=== PATIENT | female | born 1955 | race Caucasian/White ===

== ENCOUNTER 2016-11-10 17:55 | Inpatient (IN) | payer MEDICARE ==
[~2016-11-10 17:55] MED LIST: ROCURONIUM BROMIDE INJ 50 MG/5 ML VIAL IV ONE
[2016-11-10] MEDS ORDERED: DIPHENHYDRAMINE HCL 50 MG/ML VIAL IV ONE (18:43)
[2016-11-10] MEDS ORDERED: NORMAL SALINE 1000 ML 1,000 ML IV ONE ×3 (18:43→21:50)
[2016-11-10 18:47] LABS: ABSOLUTE EOSINOPHILS # (AUTO) 0.1 10^3/uL (0.0-0.6); ABSOLUTE LYMPHOCYTES (AUTO) 0.7 10^3/uL (0.5-4.7); ABSOLUTE MONOCYTES (AUTO) 0.6 10^3/uL (0.1-1.4); ABSOLUTE NEUT (AUTO) 8.9 10^3/uL (1.7-8.2); BASOPHILS % (AUTO) 0.1 % (0-2); EOSINOPHILS % (AUTO) 0.9 % (0-6); HEMOGLOBIN 10.7 g/dL (12.0-15.5); HGB HCT DIFFERENCE 0.1; LYMPHOCYTES % (AUTO) 6.5 % (13-45); MEAN CORPUSCULAR HEMOGLOBIN 30.5 pg (27.0-33.4); MEAN CORPUSCULAR HGB CONC 33.4 g/dL (32.0-36.0); MEAN CORPUSCULAR VOLUME 92 fl (80-97); MONOCYTES % (AUTO) 6.2 % (3-13); RED CELL DISTRIBUTION WIDTH 16.8 % (11.5-14.0); SEGMENTED NEUTROPHILS % (AUTO) 86.3 % (42-78); WHITE BLOOD COUNT 10.3 10^3/uL (4.0-10.5)
--- NOTE | 2016-11-10 18:50 | ER Document Report ---
ED General - General Chief Complaint: Altered Mental Status Stated Complaint: POSSIBLE OVERDOSE Time Seen by Provider: 11/10/16 18:26 Cannot obtain history due to: Altered mental status Notes: Patient is a 61-year-old female with past medical history of hypertension, chronic back pain, depression, chronic chest pain, who does present with familial concern about 4 episodes of unwitnessed syncope versus falling asleep inappropriately. Patient over the past 30 hours has been found on 4 separate times lying on the ground apparently sleeping but does immediately wake to voice. The patient herself does not recall any of these events, is not a useful historian frequently giving answers that her sister at the bedside states are not true. They are visiting out of town from [place]. Her sister at the bedside states that when a started drive up from [place] yesterday approximately several hours into the drive the patient became somewhat altered, acting unusual and having episodes where she would fall asleep frequently. Family notes that she has had similar episodes in the past in the setting of medication use but typically comes out of it in less than 3-4 hours. They have never seen the patient have symptoms for this long which is what prompted them to come to the emergency department today. The patient herself states she is taking none of her medications today but she is unable to tell me why she did this. She denies any acute complaints other than chronic low back pain which she states is not different than normal. TRAVEL OUTSIDE OF THE [place] IN LAST 30 DAYS: No - Related Data Allergies/Adverse Reactions: No Known Allergies Allergy (Unverified 11/10/16 23:05) Past Medical History - General Information source: Patient, Relative Cannot obtain history due to: Altered mental status - Social History Smoking Status: Never Smoker Frequency of alcohol use: None Drug Abuse: None Lives with: Family Family History: Reviewed & Not Pertinent Renal/ Medical History: Denies: Hx Peritoneal Dialysis Review of Systems - Review of Systems Notes: Constitutional: Negative for fever. HENT: Negative for sore throat. Eyes: Negative for visual changes. Cardiovascular: Negative for chest pain. Respiratory: Negative for shortness of breath. Gastrointestinal: Negative for abdominal pain, vomiting or diarrhea. Genitourinary: Negative for dysuria. Musculoskeletal: Positive for chronic back pain Skin: Negative for rash. Neurological: Negative for headaches, weakness or numbness. 10 point ROS negative except as marked above and in HPI. -: Yes ROS unobtainable due to patient's medical condition Physical Exam - Vital signs Vitals: Temp Pulse Resp BP Pulse Ox 98.1 F 94 18 125/99 H 93 11/10/16 18:06 11/10/16 18:06 11/10/16 18:06 11/10/16 18:06 11/10/16 18:06 Notes: PHYSICAL EXAMINATION: GENERAL: Appears anxious, unable to stop moving around in the bed, grinding her teeth HEAD: Atraumatic, normocephalic. EYES: Pupils equal round and reactive to light, extraocular movements intact, sclera anicteric, conjunctiva are normal. ENT: nares patent, oropharynx clear without exudates. Moderately dry mucous membranes. NECK: Normal range of motion, supple without lymphadenopathy LUNGS: Breath sounds clear to auscultation bilaterally and equal. No wheezes rales or rhonchi. HEART: Regular rate and rhythm without murmurs ABDOMEN: Soft, nontender, normoactive bowel sounds. No guarding, no rebound. No masses appreciated. EXTREMITIES: Normal range of motion, no pitting or edema. No cyanosis. NEUROLOGICAL: No focal neurological deficits. Moves all extremities spontaneously and on command. PSYCH: Initially fails year orientation but is eventually able to tell me it is 2017 after 30 seconds. She initially states where in [place] and on a second attempt correctly answers that we are in [place]. She is oriented to month. SKIN: Warm, Dry, normal turgor, no rashes or lesions noted. Course - Re-evaluation Re-evalutation: 11/10/16 18:45 Patient presents as an undifferentiated altered mental status with associated akathisias. Patient is unable to sit still, crawling around in the bed, grinding her teeth. Initial vitals show mild hypotension blood pressure at time of my assessment was 97 on 63. No tachycardia, tachypnea or hypoxemia. Patient does not answer orientation questions appropriately initially but is able to get them on a second try. It took her over 30 seconds to tell me what year we are in. She initially thought we are in [place] not [place]. Her vitals and symptoms are not consistent with acute opiate withdrawal which I would expect both hypertension and tachycardia although patient is on a long- acting narcotic and states she is not taking it today. Patient is on multiple psychotropic medications including gabapentin, duloxetine, and bupropion but none of these should produce akathisias. Patient is not on antipsychotics. Both alcohol and benzodiazepine withdrawal should present differently again with more tremulousness, tachycardia, hypertension, nausea and vomiting none of which patient has. Patient has no focal neurologic deficit on examination and her clinical presentation is not consistent with an acute stroke or intracranial hemorrhage. Patient denies any acute infectious symptoms. At this point will order a broad workup as my differential is wide at this time including acute toxicological mechanism, withdrawal from a stimulant such as amphetamines or cocaine, less likely occult infection. 11/10/16 19:11 Patient's pill count does demonstrate that she is missing 10 tablets of Adderall. This points to persistent amphetamine abuse in the setting of having gone on a family trip she may be acutely withdrawing from this which could reduce her agitation, periods of somnolence, and restlessness. Will continue to monitor closely 11/10/16 20:28 Labs do demonstrate that patient is in acute renal failure in the setting of acute rhabdomyolysis most suspicious for amphetamine abuse given her missing Adderall tablets and redness around her nose and a withdrawal profile consistent with this. Additional fluids have been ordered at this time. Patient will require admission. 11/10/162039 I was called to the patient's bedside as she became acutely altered, hypotensive , no longer protecting her airway. Immediately came to the bedside, 2 L of additional IV fluids were started, patient was placed into reverse Trendelenburg. A total of 1.2 mg of naloxone was administered. These interventions did significantly improve patient's blood pressure back to a normal blood pressure of 136 systolic. Patient's mental status did also return closer to her initial presenting mental status where she would appropriately answer that she is in the hospital that is 2016 but still was unable to carry an appropriate conversation. Patient continues to have involuntary twitching in all extremities. She is having mild signs of narcotic withdrawal after administration of 1.2 mg of naloxone which was given over 20 minutes and doses of 0.2-0.4 mg per dose. A bedside FAST exam was completed without any evidence of intra-abdominal fluid. IVC measurement does show that patient has greater than 50% respiratory variation consistent with dehydration. No evidence of pericardial effusion or regional wall motion abnormality on echocardiogram. Lung ultrasound shows appropriate pleural slide bilaterally. Based on patient' s overall presentation as well as response to naloxone I suspect a multifactorial presentation of narcotic overdose, amphetamine withdrawal, as well as underlying dehydration secondary to rhabdomyolysis. 11/10/16 21:34 Patient's blood pressure and hypoxemia continued to be improved but her mental status continued to deteriorate consistent with probable CO2 retention in the setting of hypoventilation and a depressed mental status. Patient has been intubated at this time for airway protection. ABG has been obtained prior to intubation. 11/10/16 21:51 Arterial blood gas shows findings consistent with an acute metabolic acidosis likely secondary to rhabdomyolysis with uremia. 2 amps of bicarbonate will be administered and a bicarb infusion will be started. 11/10/16 22:32 I have discussed the case with Dr.John Paredes who is agreeable to admission. ET tube will be advanced 2cm. Patient remains hemodynamic stable on ventilator - Vital Signs Vital signs: Temp Pulse Resp BP Pulse Ox 96.5 F L 78 17 143/73 H 100 11/10/16 23:51 11/11/16 00:10 11/11/16 02:27 11/11/16 02:27 11/11/16 02:27 - Laboratory Result Diagrams: 11/10/16 18:25 11/10/16 23:20 Laboratory results interpreted by me: 11/10/16 11/10/16 11/10/16 18:25 18:25 18:33 RBC 3.50 L Hgb 10.7 L Hct 32.0 L RDW 16.8 H Seg Neutrophils % 86.3 H Lymphocytes % 6.5 L Absolute Neutrophils 8.9 H Carbonic Acid ABG pH ABG pCO2 ABG pO2 ABG HCO3 ABG Total CO2 ABG O2 Saturation Sodium 133.5 L Chloride 96 L Carbon Dioxide 18 L Anion Gap 20 H BUN 54 H Creatinine 3.32 H Est GFR ( Amer) 17 L Est GFR (Non-Af Amer) 14 L Glucose 59 L POC Glucose Direct Bilirubin 0.7 H AST 170 H Ammonia 48.3 H Creatine Kinase 8588 H Urine Protein Urine Blood Salicylates < 1.0 L Acetaminophen < 10 L 11/10/16 11/10/16 11/10/16 19:32 21:25 21:59 RBC Hgb Hct RDW Seg Neutrophils % Lymphocytes % Absolute Neutrophils Carbonic Acid 1.45 H ABG pH 7.08 L* ABG pCO2 48.3 H ABG pO2 170.0 H ABG HCO3 13.8 L ABG Total CO2 15.3 L ABG O2 Saturation 98.5 H Sodium Chloride Carbon Dioxide Anion Gap BUN Creatinine Est GFR ( Amer) Est GFR (Non-Af Amer) Glucose POC Glucose 51 L Direct Bilirubin AST Ammonia Creatine Kinase Urine Protein 30 H Urine Blood LARGE H Salicylates Acetaminophen Procedures - Intubation Orotracheal Airway evaluation: Normal anatomy, Copious secretions Mallampati Classification: Class 2 Medications: Ketamine, Other - Rocuronium Intubation method: Orotracheal Blade type: Malu Blade size: 4 ETT size: 7.5 ETT secured at: Lips ETT secured at (cm): 23 Breath Sounds after Intubation: Equal End tidal CO2 confirmed: Yes Ventilator settings: SIMV Tidal volume: 400 FiO2: 40 Respirations: 14 PEEP: 5 Post Intubation Xray: Yes Intubation Complications: No complications Critical Care Note - Critical Care Note Total time excluding time spent on procedures (mins): 95 Comments: Critical care time spent obtaining history from patient or surrogate, discussions with consultants, development of treatment plan with patient or surrogate, evaluation of patient's response to treatment, examination of patient , ordering and performing treatments and interventions, ordering and review of laboratory studies, re-evaluation of patient's condition, ordering and review of radiographic studies and review of old charts Discharge - Discharge Clinical Impression: Metabolic acidosis, Acute kidney injury, Metabolic encephalopathy Rhabdomyolysis Qualifiers: Rhabdomyolysis type: non-traumatic Qualified Code(s): M62.82 - Rhabdomyolysis Condition: Critical Disposition: ADMITTED INPATIENT Admitting Provider: [facility] Admitted: [facility]
[2016-11-10 19:04] LABS: ALANINE AMINOTRANSFERASE 52 U/L (9-52); ALBUMIN 4.2 g/dL (3.5-5.0); ALKALINE PHOSPHATASE 60 U/L (38-126); ASPARTATE AMINO TRANSFERASE 170 U/L (14-36); BILIRUBIN,DIRECT 0.7 mg/dL (0.0-0.4); BILIRUBIN,TOTAL 0.9 mg/dL (0.2-1.3); BLOOD UREA NITROGEN 54 mg/dL (7-20); CALCIUM 8.8 mg/dL (8.4-10.2); CARBON DIOXIDE 18 mmol/L (22-30); CHLORIDE 96 mmol/L (98-107); CREATININE RESULT 3.32 mg/dL (0.52-1.25); GLUCOSE 59 mg/dL (75-110); POTASSIUM 4.4 mmol/L (3.6-5.0); TOTAL PROTEIN 6.7 g/dL (6.3-8.2)
[2016-11-10 19:14] LABS: SODIUM 133.5 mmol/L (137-145)
[2016-11-10 19:18] LABS: ANION GAP 20 (5-19)
[2016-11-10 19:48] LABS: CREATINE KINASE 8588 U/L (30-135)
[2016-11-10 19:52] LABS: AMORPHOUS SEDIMENT,URINE TRACE /HPF; APPEARANCE,URINE CLOUDY; BILIRUBIN,URINE NEGATIVE (NEGATIVE); GLUCOSE, URINE NEGATIVE (NEGATIVE); KETONES,URINE NEGATIVE (NEGATIVE); LEUKOCYTE ESTERASE,URINE NEGATIVE (NEGATIVE); NITRITE,URINE NEGATIVE (NEGATIVE); PROTEIN,URINE 30 mg/dL (NEGATIVE); URINE SPECIFIC GRAVITY 1.014; UROBILINOGEN,URINE NEGATIVE mg/dL (<2.0)
--- NOTE | 2016-11-10 20:03 | RADIOLOGY REPORT (SQ) ---
EXAM DESCRIPTION: CHEST SINGLE VIEW COMPLETED DATE/TIME: 11/10/2016 7:17 pm REASON FOR STUDY: ams COMPARISON: None. EXAM PARAMETERS: NUMBER OF VIEWS: One view. TECHNIQUE: Single frontal radiographic view of the chest acquired. RADIATION DOSE: NA LIMITATIONS: None. FINDINGS: LUNGS AND PLEURA: No opacities, masses or pneumothorax. No pleural effusion. MEDIASTINUM AND HILAR STRUCTURES: No masses. Contour normal. HEART AND VASCULAR STRUCTURES: Heart normal in size. Normal vasculature. BONES: No acute findings. HARDWARE: None in the chest. OTHER: No other significant finding. IMPRESSION: NO ACUTE RADIOGRAPHIC FINDING IN THE CHEST. TECHNICAL DOCUMENTATION: JOB ID: [id number]
[2016-11-10 20:06] LABS: URINE BARBITURATES SCREEN NEGATIVE; URINE METHADONE SCREEN NEGATIVE; URINE OPIATES LOW UNCONFIRMED POSITIVE; URINE PHENCYCLIDINE SCREEN NEGATIVE
--- NOTE | 2016-11-10 20:12 | RADIOLOGY REPORT (SQ) ---
EXAM DESCRIPTION: CT HEAD WITHOUT COMPLETED DATE/TIME: 11/10/2016 7:30 pm REASON FOR STUDY: ams COMPARISON: None. TECHNIQUE: Axial images acquired through the brain without intravenous contrast. Images reviewed wi th bone, brain and subdural windows. Images stored on PACS. All CT scanners at this facility use dose modulation, iterative reconstruction, and/or weight based d osing when appropriate to reduce radiation dose to as low as reasonably achievable (ALARA). [facility]: Dose Right [facility]: CareDose [facility]: Dose Right [facility]: Teradose 4D [facility]: Smart Oculus VR RADIATION DOSE: Up-to-date CT equipment and radiation dose reduction techniques were employed. CTDIv ol: 64.6 mGy. DLP: 2172 mGy-cm. mGy. LIMITATIONS: None. FINDINGS: VENTRICLES: Normal size and contour. CEREBRUM: No masses. No hemorrhage. No midline shift. Normal sutton/white matter differentiation. N o evidence for acute infarction. CEREBELLUM: No masses. No hemorrhage. No alteration of density. No evidence for acute infarction. EXTRAAXIAL SPACES: No fluid collections. No masses. ORBITS AND GLOBE: No intra- or extraconal masses. Normal contour of globe without masses. CALVARIUM: No fracture. PARANASAL SINUSES: No fluid or mucosal thickening. SOFT TISSUES: No mass or hematoma. OTHER: No other significant finding. IMPRESSION: No acute intracranial findings. TECHNICAL DOCUMENTATION: JOB ID: [id number] Quality ID # [id number]: Final reports with documentation of one or more dose reduction techniques (e.g., Au tomated exposure control, adjustment of the mA and/or kV according to patient size, use of iterative reconstruction technique) 2010 [employer]- All Rights Reserved
[2016-11-10] MEDS ORDERED: DEXTROSE 50%-WATER 25 GM/50 ML DISP.SYRIN IV ONE (20:27)
[2016-11-10] MEDS ORDERED: NALOXONE HCL INJ/PF 0.4 MG/1 ML SDV ONE ×4 (20:36→21:13)
[2016-11-10] MEDS ORDERED: NOREPINEPHRINE BITARTRATE INJ/PF 4 MG/4 ML SDV IV ONE (20:42)
[2016-11-10] MEDS ORDERED: ONDANSETRON HCL INJ/PF 4 MG/2 ML SDV ONE (20:55)
[2016-11-10] MEDS ORDERED: KETAMINE HCL INJ 500 MG/10 ML VIAL ONE (21:20)
--- NOTE | 2016-11-10 21:26 | EKG REPORT ---
SEVERITY:- ABNORMAL ECG - SINUS RHYTHM NONSPECIFIC ST-T CHANGES DIFFUSE : Confirmed by: Dar Mack MD 10-Nov-2016 21:26:25
[2016-11-10] MEDS ORDERED: FENTANYL CITRATE INJ/PF 100 MCG/2 ML AMPUL IV ONE (21:34)
[2016-11-10 21:39] LABS: ARTERIAL BLOOD BASE EXCESS -15.6 mmol/L; ARTERIAL BLOOD O2 SATURATION 98.5 % (94-98)
[2016-11-10] MEDS ORDERED: DEXTROSE 5%-WATER 1000 ML 1,000 ML with SODIUM BICARBONATE 150 MEQ IV PRN ×2 (21:49)
[2016-11-10] MEDS ORDERED: SODIUM BICARBONATE 4.2% INJ (2.4 MEQ/5 ML) VIAL INJ ONE (21:50)
[2016-11-10] MEDS ORDERED: SODIUM BICARBONATE 8.4% INJ 50 MEQ/50 ML DISP.SYRIN ONE ×3 (21:51→21:57)
--- NOTE | 2016-11-10 22:18 | RADIOLOGY REPORT (SQ) ---
EXAM DESCRIPTION: CHEST SINGLE VIEW COMPLETED DATE/TIME: 11/10/2016 10:06 pm REASON FOR STUDY: post intubation COMPARISON: None. EXAM PARAMETERS: NUMBER OF VIEWS: One view. TECHNIQUE: Single frontal radiographic view of the chest acquired. RADIATION DOSE: NA LIMITATIONS: None. FINDINGS: LUNGS AND PLEURA: Mildly increase markings in the left lung base. No significant effusion . No pneumothorax. Right lung remains clear. MEDIASTINUM AND HILAR STRUCTURES: Stable. HEART AND VASCULAR STRUCTURES: Stable. BONES: No acute findings. HARDWARE: Endotracheal tube tip overlies the mid trachea. Nasogastric catheter is present with tip o verlying the body of the stomach. OTHER: No other significant finding. IMPRESSION: Mildly increase markings in the left lung base. No significant effusion. Endotracheal t ube tip overlies the mid trachea. Nasogastric catheter is present with tip overlying the body of the stomach. TECHNICAL DOCUMENTATION: JOB ID: [id number]
[2016-11-10] MEDS ORDERED: GLUCAGON,HUMAN RECOMB 1 MG INJ IM PRN (22:25)
[2016-11-10] MEDS ORDERED: DEXTROSE 50%-WATER 25 GM/50 ML DISP.SYRIN IV PRN ×2 (22:25)
[2016-11-10] MEDS ORDERED: DEXTROSE 40% GEL 15 GM TUBE PO PRN ×2 (22:25)
[2016-11-10] MEDS ORDERED: DOPAMINE HCL/DEXTROSE 5%-WATER 800 MG/250 ML RTUINJ IV ONE (22:42)
[2016-11-10] MEDS ORDERED: DOPAMINE HCL/DEXTROSE 5%-WATER 0 MG/0 ML RTUINJ IV ONE (22:42)
[2016-11-10] MEDS ORDERED: NALOXONE HCL INJ 2 MG/2 ML DISP.SYRIN ONE (22:51)
[2016-11-10] MEDS: NORMAL SALINE 500 ML with NALOXONE HCL 2 MG IV PRN ×2 (23:00)
[2016-11-10] MEDS ORDERED: NORMAL SALINE 1000 ML 2,000 ML IV ONE (23:15)
[2016-11-10] MEDS ORDERED: NALOXONE HCL INJ 2 MG/2 ML DISP.SYRIN IV PRN (23:15)
[2016-11-10 23:37] LABS: MAGNESIUM 2.3 mg/dL (1.6-2.3); PHOSPHORUS 9.1 mg/dL (2.5-4.5)
[2016-11-10 23:44] LABS: ANION GAP 19 (5-19); BLOOD UREA NITROGEN 50 mg/dL (7-20); CALCIUM 7.2 mg/dL (8.4-10.2); CARBON DIOXIDE 16 mmol/L (22-30); CHLORIDE 104 mmol/L (98-107); CREATININE RESULT 2.56 mg/dL (0.52-1.25); GLUCOSE 189 mg/dL (75-110); SODIUM 139.1 mmol/L (137-145)
[2016-11-10 23:57] LABS: POTASSIUM 3.1 mmol/L (3.6-5.0)
--- NOTE | 2016-11-11 00:04 | RADIOLOGY REPORT (SQ) ---
EXAM DESCRIPTION: CHEST SINGLE VIEW COMPLETED DATE/TIME: 11/10/2016 11:49 pm REASON FOR STUDY: hypotension COMPARISON: Earlier exam same date EXAM PARAMETERS: NUMBER OF VIEWS: One view. TECHNIQUE: Single frontal radiographic view of the chest acquired. RADIATION DOSE: NA LIMITATIONS: None. FINDINGS: LUNGS AND PLEURA: Similar increased airspace and interstitial markings in the left lung ba se. Right lung appears clear. No significant effusion. No pneumothorax. MEDIASTINUM AND HILAR STRUCTURES: Stable. HEART AND VASCULAR STRUCTURES: Stable. BONES: No acute findings. HARDWARE: Endotracheal tube tip overlies the mid trachea, stable. Nasogastric catheter tip overlies the body of the stomach in stable position. OTHER: No other significant finding. IMPRESSION: Stable radiograph. Tubes and lines in expected position. TECHNICAL DOCUMENTATION: JOB ID: [id number]
[2016-11-11 00:47] LABS: ARTERIAL BLOOD BASE EXCESS -10.7 mmol/L; ARTERIAL BLOOD O2 SATURATION 93.4 % (94-98)
[2016-11-11] MEDS: POTASSI CL 20 MEQ/50 ML RIDER 20 MEQ/50 ML RTUPB IV SCH ×5 (01:01→16:45)
[2016-11-11] MEDS: NORMAL SALINE 500 ML with NALOXONE HCL 2 MG IV PRN ×2 (01:49)
[2016-11-11] MEDS ORDERED: KETAMINE HCL INJ 500 MG/10 ML VIAL IV ONE (02:45)
[2016-11-11] MEDS ORDERED: ROCURONIUM BROMIDE INJ 50 MG/5 ML VIAL IV ONE (02:45)
[2016-11-11] MEDS ORDERED: NALOXONE HCL INJ/PF 0.4 MG/1 ML SDV IV ONE (02:45)
[2016-11-11] MEDS ORDERED: ONDANSETRON HCL INJ/PF 4 MG/2 ML SDV IV ONE (02:45)
[2016-11-11] MEDS ORDERED: LORAZEPAM INJ 2 MG/1 ML VIAL ONE (03:26)
[2016-11-11] MEDS ORDERED: LORAZEPAM INJ 2 MG/1 ML VIAL IV PRN (04:18)
[2016-11-11 04:25] LABS: ANION GAP 16 (5-19); BLOOD UREA NITROGEN 48 mg/dL (7-20); CALCIUM 7.1 mg/dL (8.4-10.2); CARBON DIOXIDE 18 mmol/L (22-30); CHLORIDE 108 mmol/L (98-107); CREATININE RESULT 2.09 mg/dL (0.52-1.25); GLUCOSE 160 mg/dL (75-110); POTASSIUM 3.6 mmol/L (3.6-5.0); SODIUM 142.2 mmol/L (137-145)
--- NOTE | 2016-11-11 04:59 | PDOC H&P ---
History of Present Illness Admission Date/PCP: 11/10/16 22:48 Patient complains of: Altered mental status History of Present Illness: BARBARA RHODES is a 61 year old female with a past medical history of hypertension, chronic low back pain, depression, who presents after family members concern for several episodes of unwitnessed syncope versus lethargy and falls occurring over the last 30 hours. Yesterday she was driven by her sister from [place] to [place]. Family members admit previous episodes of excessive sedation secondary to medication. In the emergency room patient found to hypotensive with a blood pressure 97/63 without tachycardia, appearing intoxicated, developing hyperkinesis, grinding her teeth and restlessness. She is unable to protect her airway and is intubated. Evaluation of her medications are notable for 10 tablets of Adderall short. She is referred to the hospital for admission for acute intoxication, encephalopathy, hypotension, rhabdomyolysis, metabolic acidosis, hypoglycemia and acute renal failure. Past Medical History Cardiac Medical History: Reports: Hyperlipidema GI Medical History: Reports: Gastroesophageal Reflux Disease Psychiatric Medical History: Reports: Attention Deficit Hyperactivity Disorder, Depression Social History Information Source: Relative, Emergency Med Personnel, [facility] Records Lives with: Family Smoking Status: Never Smoker - Advance Directive Resuscitation Status: Full Code Family History Parental Family History Reviewed: No - Unknown Children Family History Reviewed: No - Unobtainable Sibling(s) Family History Reviewed.: No - Unobtainable Medication/Allergy Allergies/Adverse Reactions: No Known Allergies Allergy (Unverified 11/10/16 23:05) Review of Systems ROS unobtainable: Due to mental status - Unobtainable secondary to intubation Constitutional: ABSENT: chills, fever(s), headache(s), weight gain, weight loss Eyes: ABSENT: visual disturbances Ears: ABSENT: hearing changes Cardiovascular: ABSENT: chest pain, dyspnea on exertion, edema, orthropnea, palpitations Respiratory: ABSENT: cough, hemoptysis Gastrointestinal: ABSENT: abdominal pain, constipation, diarrhea, hematemesis, hematochezia, nausea, vomiting Genitourinary: ABSENT: dysuria, hematuria Musculoskeletal: ABSENT: joint swelling Integumentary: ABSENT: rash, wounds Neurological: ABSENT: abnormal gait, abnormal speech, confusion, dizziness, focal weakness, syncope Psychiatric: ABSENT: anxiety, depression, homidical ideation, suicidal ideation Endocrine: ABSENT: cold intolerance, heat intolerance, polydipsia, polyuria Hematologic/Lymphatic: ABSENT: easy bleeding, easy bruising Physical Exam Vital Signs: Temp Pulse Resp BP Pulse Ox 96.5 F L 78 17 143/73 H 99 11/10/16 23:51 11/11/16 00:10 11/11/16 02:27 11/11/16 02:27 11/11/16 04:00 Intake & Output 11/09/16 11/10/16 11/11/16 11:59 11:59 11:59 Output Total 550 Balance -550 Weight 75.7 kg General appearance: PRESENT: no acute distress - Intubated without sedation comfortable on ventilator Head exam: PRESENT: atraumatic, normocephalic Eye exam: PRESENT: PERRLA - Pupils 2 mm symmetric and sluggishly responsive Ear exam: PRESENT: normal external ear exam Mouth exam: PRESENT: moist, tongue midline Neck exam: ABSENT: carotid bruit, JVD, lymphadenopathy, thyromegaly Respiratory exam: PRESENT: clear to auscultation katelin. ABSENT: rales, rhonchi, wheezes Cardiovascular exam: PRESENT: RRR. ABSENT: diastolic murmur, rubs, systolic murmur Pulses: PRESENT: normal dorsalis pedis pul Vascular exam: PRESENT: normal capillary refill GI/Abdominal exam: PRESENT: normal bowel sounds, soft. ABSENT: distended, guarding, mass, organolmegaly, rebound, tenderness Rectal exam: PRESENT: deferred Extremities exam: PRESENT: full ROM, other - Multiple bruising suggestive of falls to the right shoulder right knee, left ankle and left thigh. ABSENT: calf tenderness, clubbing, pedal edema Musculoskeletal exam: PRESENT: full ROM Neurological exam: PRESENT: altered Skin exam: PRESENT: dry, other - Multiple bruising suggestive of falls to the right shoulder right knee, left ankle and left thigh. ABSENT: cyanosis, erythema, jaundice, mottled, vesicles Results Laboratory Results: 11/11/16 03:40 11/10/16 11/10/16 11/11/16 23:20 23:20 00:35 Carbonic Acid 1.25 HCO3/H2CO3 Ratio 13:1 ABG pH 7.22 L ABG pCO2 41.5 ABG pO2 79.8 L ABG HCO3 16.5 L ABG O2 Saturation 93.4 L ABG Base Excess -10.7 FiO2 40% Sodium 139.1 Potassium 3.1 L D Chloride 104 Carbon Dioxide 16 L Anion Gap 19 BUN 50 H Creatinine 2.56 H Est GFR ( Amer) 23 L Est GFR (Non-Af Amer) 19 L Glucose 189 H Calcium 7.2 L Phosphorus 9.1 H Magnesium 2.3 11/11/16 03:40 Carbonic Acid HCO3/H2CO3 Ratio ABG pH ABG pCO2 ABG pO2 ABG HCO3 ABG O2 Saturation ABG Base Excess FiO2 Sodium 142.2 Potassium 3.6 Chloride 108 H Carbon Dioxide 18 L Anion Gap 16 BUN 48 H Creatinine 2.09 H Est GFR ( Amer) 29 L Est GFR (Non-Af Amer) 24 L Glucose 160 H Calcium 7.1 L Phosphorus Magnesium Impressions: Head CT 11/10/16 18:27 IMPRESSION: No acute intracranial findings. Chest X-Ray 11/10/16 23:31 IMPRESSION: Stable radiograph. Tubes and lines in expected position. Assessment & Plan - Diagnosis (1) Hypotension Is this a current diagnosis for this admission?: YesPlan: No evidence to sepsis or cardiogenic shock, likely secondary to narcotic overdose she was given IV fluid challenge, Narcan and dopamine as needed (2) Hypoglycemia Is this a current diagnosis for this admission?: YesPlan: Unclear cause and duration Accu-Cheks q. hour hypoglycemic protocol. (3) Acute kidney injury Is this a current diagnosis for this admission?: YesPlan: Unclear history of renal failure however likely secondary to hypotension, rhabdomyolysis explained by narcotic overdose. She received IV fluid challenge , IV bicarb, renal dose dopamine and reevaluation chemistry. Urinalysis pending consider nephrology consult. (4) Metabolic acidosis Is this a current diagnosis for this admission?: YesPlan: Unclear cause likely hypotension with prerenal failure and possible hypoperfusion. IV fluid challenge, pressure support IV dextrose and reevaluation chemistry. (5) Metabolic encephalopathy Is this a current diagnosis for this admission?: YesPlan: Likely multifactorial secondary to psychotropic medication and narcotic. Supportive measures and IV Narcan. (6) Rhabdomyolysis Qualifiers: Rhabdomyolysis type: non-traumatic Qualified Code(s): M62.82 - Rhabdomyolysis Is this a current diagnosis for this admission?: YesPlan: Secondary to intoxication, avoiding nephrotoxic meds, IV fluid challenge, bicarbonate reevaluation total CK and chemistry - Time Time Spent: 50 to 70 Minutes - Inpatient Certification Medical Necessity: Need Close Monitoring Due to Risk of Patient Decompensation
[2016-11-11] MEDS: HEPARIN SOD (PORCINE) 5,000 UNIT/ML 1 ML SYRINGE SUBCUT SCH ×3 (06:35→21:59)
[2016-11-11] MEDS: LANSOPRAZOLE 30 MG TAB.RAP.DR NG SCH (06:36)
--- NOTE | 2016-11-11 07:49 | RADIOLOGY REPORT (SQ) ---
EXAM DESCRIPTION: CHEST SINGLE VIEW COMPLETED DATE/TIME: 11/11/2016 7:04 am REASON FOR STUDY: intubated COMPARISON: 11/10/2016. EXAM PARAMETERS: NUMBER OF VIEWS: One view. TECHNIQUE: Single frontal radiographic view of the chest acquired. RADIATION DOSE: NA LIMITATIONS: None. FINDINGS: LUNGS AND PLEURA: Moderate lung volumes. Moderate right infrahilar, patchy opacity. MEDIASTINUM AND HILAR STRUCTURES: No masses. Contour normal. HEART AND VASCULAR STRUCTURES: Heart normal in size. Normal vasculature. BONES: No acute findings. HARDWARE: Adequate appearing endotracheal tube. NG tube is partially obscured distally. Right upper abdominal clips. OTHER: No other significant finding. IMPRESSION: Moderate right infrahilar opacity may indicate pneumonia or atelectasis. Interval worse agustín. Lines and tubes. TECHNICAL DOCUMENTATION: JOB ID: [id number]
--- NOTE | 2016-11-11 07:52 | EKG REPORT ---
SEVERITY:- BORDERLINE ECG - SINUS RHYTHM BORDERLINE ST-T ABNORMALITIES, ANT-LAT LEADS BORDERLINE PROLONGED QT INTERVAL : Confirmed by: Shaylee Chowdhury 11-Nov-2016 07:51:32
--- NOTE | 2016-11-11 08:11 | PDOC PROGRESS REPORT ---
Subjective Progress Note for:: 11/11/16 Subjective:: Patient seen on morning rounds. She is resting in bed orally intubated to the ventilator. She turns her head towards her name. She attempts to open her eyes. GORDON. She is moving all extremities equally. She is in soft wrist restraints for tube protection. Unable to complete review of systems due to intubation. There are no family members at bedside. Vitals are now stable off IV Dopamine infusion. IV Narcan complete. Physical Exam Vital Signs: Temp Pulse Resp BP Pulse Ox 99.3 F 76 14 103/57 L 95 11/11/16 07:35 11/11/16 07:35 11/11/16 07:35 11/11/16 07:35 11/11/16 07:35 Intake & Output 11/10/16 11/11/16 11/12/16 06:59 06:59 06:59 Intake Total 2967 Output Total 650 Balance 2317 Weight 75.7 kg General appearance: PRESENT: no acute distress, well-developed, well-nourished Head exam: PRESENT: atraumatic, normocephalic Eye exam: PRESENT: conjunctiva pale, PERRLA Ear exam: PRESENT: normal external ear exam Mouth exam: PRESENT: moist, tongue midline Neck exam: ABSENT: carotid bruit, JVD, lymphadenopathy, thyromegaly Respiratory exam: PRESENT: clear to auscultation katelin, symmetrical, unlabored - Orally intubated. ABSENT: rales, rhonchi, wheezes Cardiovascular exam: PRESENT: RRR, +S1, +S2 Pulses: PRESENT: normal carotid pulses, normal radial pulses Vascular exam: PRESENT: normal capillary refill GI/Abdominal exam: PRESENT: normal bowel sounds, soft. ABSENT: distended, guarding, mass, organolmegaly, rebound, tenderness Rectal exam: PRESENT: deferred Extremities exam: PRESENT: full ROM. ABSENT: calf tenderness, clubbing, pedal edema Musculoskeletal exam: PRESENT: normal inspection Neurological exam: PRESENT: alert, CN II-XII grossly intact, other - Orally intubated, Psychiatric exam: PRESENT: agitated Skin exam: PRESENT: dry, intact, warm. ABSENT: cyanosis, rash Results Laboratory Results: 11/11/16 03:40 11/10/16 11/10/16 11/11/16 23:20 23:20 00:35 Carbonic Acid 1.25 HCO3/H2CO3 Ratio 13:1 ABG pH 7.22 L ABG pCO2 41.5 ABG pO2 79.8 L ABG HCO3 16.5 L ABG O2 Saturation 93.4 L ABG Base Excess -10.7 FiO2 40% Sodium 139.1 Potassium 3.1 L D Chloride 104 Carbon Dioxide 16 L Anion Gap 19 BUN 50 H Creatinine 2.56 H Est GFR ( Amer) 23 L Est GFR (Non-Af Amer) 19 L Glucose 189 H Calcium 7.2 L Phosphorus 9.1 H Magnesium 2.3 11/11/16 03:40 Carbonic Acid HCO3/H2CO3 Ratio ABG pH ABG pCO2 ABG pO2 ABG HCO3 ABG O2 Saturation ABG Base Excess FiO2 Sodium 142.2 Potassium 3.6 Chloride 108 H Carbon Dioxide 18 L Anion Gap 16 BUN 48 H Creatinine 2.09 H Est GFR ( Amer) 29 L Est GFR (Non-Af Amer) 24 L Glucose 160 H Calcium 7.1 L Phosphorus Magnesium 11/11/16 03:40 Creatine Kinase 6633 H Impressions: Head CT 11/10/16 18:27 IMPRESSION: No acute intracranial findings. Chest X-Ray 11/11/16 06:00 IMPRESSION: Moderate right infrahilar opacity may indicate pneumonia or atelectasis. Interval worsening. Lines and tubes. Assessment & Plan - Diagnosis (1) Metabolic encephalopathy Is this a current diagnosis for this admission?: YesPlan: Likely secondary to opioid narcotic and prescription amphetamine overuse. Patient is following some commands. Intubated for airway protection. IV Narcan infusion overnight. Ativan prn for agitation. Will consult pulmonary for ventilator management. (2) Acute kidney injury Is this a current diagnosis for this admission?: YesPlan: Improving. Secondary to dehydration and hypotension. Will continue IV hydration. Blood pressure is improved off Dopamine. Avoid nephrotoxic medications and dosages. (3) Hypoglycemia Is this a current diagnosis for this admission?: YesPlan: Resolved (4) Hypotension Qualifiers: Hypotension type: hypotension due to drug Qualified Code(s): I95.2 - Hypotension due to drugs Is this a current diagnosis for this admission?: YesPlan: Resolved with rehydration, IV Dopamine off (5) Metabolic acidosis Is this a current diagnosis for this admission?: YesPlan: Secondary to dehydration, JAVIER improving will continue to monitor (6) Rhabdomyolysis Qualifiers: Rhabdomyolysis type: non-traumatic Qualified Code(s): M62.82 - Rhabdomyolysis Is this a current diagnosis for this admission?: YesPlan: CPKs 8000 trending downward with IV hydration and bicarb (7) Chronic back pain Qualifiers: Back pain location: back pain in unspecified location Is this a current diagnosis for this admission?: YesPlan: Patient has been on intermediate designer opiates for back pain. Will add prn morphine prevent opiate withdrawal syndrome - Time Time Spent with patient: 25-34 minutes Critical Time spent with patient: 25-34 minutes Medications reviewed and adjusted accordingly: Yes
[2016-11-11] MEDS ORDERED: MORPHINE SULFATE 10 MG/ML INJ IV PRN ×2 (08:28→11:06)
[2016-11-11 09:10] LABS: ABSOLUTE LYMPHOCYTES (AUTO) 0.8 10^3/uL (0.5-4.7); ABSOLUTE NEUT (AUTO) 7.6 10^3/uL (1.7-8.2); BASOPHILS % (AUTO) 0.2 % (0-2); EOSINOPHILS % (AUTO) 0.1 % (0-6); HEMATOCRIT 28.2 % (36.0-47.0); HEMOGLOBIN 9.5 g/dL (12.0-15.5); HGB HCT DIFFERENCE 0.3; LYMPHOCYTES % (AUTO) 8.4 % (13-45); MEAN CORPUSCULAR HEMOGLOBIN 30.1 pg (27.0-33.4); MEAN CORPUSCULAR HGB CONC 33.6 g/dL (32.0-36.0); MEAN CORPUSCULAR VOLUME 90 fl (80-97); MONOCYTES % (AUTO) 10.1 % (3-13); RED BLOOD COUNT 3.15 10^6/uL (3.72-5.28); RED CELL DISTRIBUTION WIDTH 17.2 % (11.5-14.0); SEGMENTED NEUTROPHILS % (AUTO) 81.2 % (42-78); WHITE BLOOD COUNT 9.4 10^3/uL (4.0-10.5)
[2016-11-11 09:34] LABS: ALANINE AMINOTRANSFERASE 53 U/L (9-52); ALBUMIN 2.9 g/dL (3.5-5.0); ALKALINE PHOSPHATASE 71 U/L (38-126); ANION GAP 12 (5-19); ASPARTATE AMINO TRANSFERASE 143 U/L (14-36); BILIRUBIN,DIRECT 0.5 mg/dL (0.0-0.4); BILIRUBIN,TOTAL 0.5 mg/dL (0.2-1.3); BLOOD UREA NITROGEN 40 mg/dL (7-20); CARBON DIOXIDE 18 mmol/L (22-30); CHLORIDE 113 mmol/L (98-107); GLUCOSE 96 mg/dL (75-110); POTASSIUM 4.1 mmol/L (3.6-5.0); SODIUM 143.1 mmol/L (137-145); TOTAL PROTEIN 5.2 g/dL (6.3-8.2)
[2016-11-11 10:00] LABS: CALCIUM 6.7 mg/dL (8.4-10.2)
[2016-11-11] MEDS ORDERED: DOCUSATE SODIUM 100 MG/10 ML UDC PO SCH (10:00)
[2016-11-11 10:03] LABS: CREATINE KINASE 6107 U/L (30-135)
[2016-11-11 11:07] LABS: ARTERIAL BLOOD BASE EXCESS -7.2 mmol/L; ARTERIAL BLOOD O2 SATURATION 98.2 % (94-98)
--- NOTE | 2016-11-11 11:16 | PDOC CONSULTATION ---
Consultation Consult Date: 11/11/16 Attending physician:: ASHU MCKEON Consult reason:: acute resp failure History of Present Illness Admission Date/PCP: 11/10/16 22:48 History of Present Illness: BARBARA RHODES is a 61 year old female presented to the emergency room hypotensive, hyperkinetic and unresponsive appearing to be intoxicated per ER notes. She was subsequently intubated her family admits that she has had several episodes of syncope in the past has been very lethargic lately unless he spent several articles in a motor vehicle from [place] to [place]. She has a history of smoking as well as being exposed to passive smoke as a child and as an adult. She worked as an RN. She has 1 dog and no recent travel except to [place] as stated above. Past Medical History Cardiac Medical History: Reports: Hyperlipidema GI Medical History: Reports: Gastroesophageal Reflux Disease Psychiatric Medical History: Reports: Attention Deficit Hyperactivity Disorder, Depression Social History Information Source: Relative, [facility] Records Lives with: Family Smoking Status: Former Smoker Passive smoke exposure as: Both Do you have pets?: Yes Have you had any respiratory illnesses as a child?: No Have you been exposed to any sick contacts recently?: No Have you travelled outside of [place] in the past 12 months?: Yes - Advance Directive Resuscitation Status: Full Code Family History Family History: Reviewed & Not Pertinent Parental Family History Reviewed: Yes Children Family History Reviewed: Yes Sibling(s) Family History Reviewed.: Yes Medication/Allergy Allergies/Adverse Reactions: No Known Allergies Allergy (Unverified 11/10/16 23:05) Review of Systems ROS unobtainable: Due to endotracheal tube Physical Exam Vital Signs: Temp Pulse Resp BP Pulse Ox 99.3 F 76 14 103/57 L 95 11/11/16 07:35 11/11/16 07:35 11/11/16 07:35 11/11/16 07:35 11/11/16 07:35 Intake & Output 11/10/16 11/11/16 11/12/16 06:59 06:59 06:59 Intake Total 2967 Output Total 650 Balance 2317 Weight 75.7 kg General appearance: PRESENT: no acute distress, cooperative, disheveled, thin, well-developed Head exam: PRESENT: atraumatic, normocephalic Eye exam: PRESENT: conjunctiva pale, EOMI Mouth exam: PRESENT: dry mucosa, neck supple, tongue midline, other - ET tube in place Neck exam: ABSENT: carotid bruit, JVD, lymphadenopathy, thyromegaly Respiratory exam: PRESENT: decreased breath sounds, prolonged expiratory phas, rales, rhonchi, symmetrical, unlabored Cardiovascular exam: PRESENT: RRR, +S1, +S2 Pulses: PRESENT: normal radial pulses GI/Abdominal exam: PRESENT: normal bowel sounds, soft. ABSENT: distended, guarding, mass, organolmegaly, rebound, tenderness Rectal exam: PRESENT: deferred Gentrourinary exam: PRESENT: indwelling catheter Musculoskeletal exam: PRESENT: normal inspection Neurological exam: PRESENT: alert, awake Psychiatric exam: PRESENT: normal mood Skin exam: PRESENT: dry, warm Results Laboratory Results: 11/11/16 03:40 11/10/16 11/10/16 11/11/16 23:20 23:20 00:35 Carbonic Acid 1.25 HCO3/H2CO3 Ratio 13:1 ABG pH 7.22 L ABG pCO2 41.5 ABG pO2 79.8 L ABG HCO3 16.5 L ABG O2 Saturation 93.4 L ABG Base Excess -10.7 FiO2 40% Sodium 139.1 Potassium 3.1 L D Chloride 104 Carbon Dioxide 16 L Anion Gap 19 BUN 50 H Creatinine 2.56 H Est GFR ( Amer) 23 L Est GFR (Non-Af Amer) 19 L Glucose 189 H Calcium 7.2 L Phosphorus 9.1 H Magnesium 2.3 11/11/16 03:40 Carbonic Acid HCO3/H2CO3 Ratio ABG pH ABG pCO2 ABG pO2 ABG HCO3 ABG O2 Saturation ABG Base Excess FiO2 Sodium 142.2 Potassium 3.6 Chloride 108 H Carbon Dioxide 18 L Anion Gap 16 BUN 48 H Creatinine 2.09 H Est GFR ( Amer) 29 L Est GFR (Non-Af Amer) 24 L Glucose 160 H Calcium 7.1 L Phosphorus Magnesium 11/11/16 03:40 Creatine Kinase 6633 H Impressions: Head CT 11/10/16 18:27 IMPRESSION: No acute intracranial findings. Chest X-Ray 11/11/16 06:00 IMPRESSION: Moderate right infrahilar opacity may indicate pneumonia or atelectasis. Interval worsening. Lines and tubes. Assessment & Plan - Diagnosis (1) Aspiration pneumonitis Is this a current diagnosis for this admission?: YesPlan: Radiographic evidence for pneumonitis probable aspiration metabolic acidosis (2) Airway compromise Is this a current diagnosis for this admission?: Yes (3) Metabolic acidosis Is this a current diagnosis for this admission?: YesPlan: prelude to sepsis ? Patient is relatively easy to oxygenate however a long automobile ride prior to arrival certainly predispose her to pulmonary emboli at this time she is stable has elevated creatinine and BUN which would probably preclude a contrast study at this time. - Time Critical Time spent with patient: 35 or more minutes - 60 min discussed with family,RN,RT and PCP
[2016-11-11] MEDS ORDERED: CALCIUM GLUCONATE 1000 MG/10 ML INJ IV ONE (13:10)
[2016-11-11] MEDS: IPRATROPIUM/ALBUTEROL 0.5-2.5 MG/3 ML AMPUL NEB PRN (13:13)
[2016-11-11] MEDS ORDERED: VANCOMYCIN HCL 0 MG in DEXTROSE 5%-WATER 250 ML IV NR (13:15)
[2016-11-11] MEDS ORDERED: NORMAL SALINE 1000 ML 1,000 ML IV ONE (13:16)
[2016-11-11] MEDS ORDERED: NORMAL SALINE 1000 ML 1,000 ML IV PRN (13:16)
[2016-11-11 14:01] LABS: ANION GAP 12 (5-19); BLOOD UREA NITROGEN 34 mg/dL (7-20); CARBON DIOXIDE 18 mmol/L (22-30); CHLORIDE 115 mmol/L (98-107); CREATININE RESULT 1.23 mg/dL (0.52-1.25); GLUCOSE 91 mg/dL (75-110); POTASSIUM 3.4 mmol/L (3.6-5.0); SODIUM 145.2 mmol/L (137-145)
[2016-11-11 14:13] LABS: CALCIUM 6.7 mg/dL (8.4-10.2)
[2016-11-11] MEDS: BUPROPION HCL 100 MG TABLET PO SCH ×2 (14:15→21:59)
[2016-11-11] MEDS: PIPERACILLIN SODIUM/TAZOBACTAM 3.375 GM in NORMAL SALINE 100 ML IV SCH ×2 (14:15→21:59)
[2016-11-11 14:22] LABS: CREATINE KINASE 5985 U/L (30-135)
[2016-11-11] MEDS ORDERED: DEXTROSE 5%-WATER 250 ML with NOREPINEPHRINE BITARTRATE 4 MG IV PRN ×2 (14:29)
[2016-11-11] MEDS: DEXTROSE 5%-1/2 NORMAL SALINE 1,000 ML IV PRN (14:53)
[2016-11-11] MEDS: VANCOMYCIN HCL 1,500 MG in DEXTROSE 5%-WATER 250 ML IV SCH (16:37)
[2016-11-11] MEDS: PROPOFOL 100 ML IV PRN ×2 (16:38→22:57)
[2016-11-11 17:33] LABS: ANION GAP 13 (5-19); BLOOD UREA NITROGEN 31 mg/dL (7-20); CARBON DIOXIDE 16 mmol/L (22-30); CHLORIDE 115 mmol/L (98-107); CREATININE RESULT 1.09 mg/dL (0.52-1.25); GLUCOSE 128 mg/dL (75-110); POTASSIUM 3.8 mmol/L (3.6-5.0); SODIUM 144.3 mmol/L (137-145)
[2016-11-11] MEDS: DOCUSATE SODIUM 100 MG CAPSULE PO SCH (17:40)
[2016-11-11 21:20] LABS: ANION GAP 11 (5-19); BLOOD UREA NITROGEN 28 mg/dL (7-20); CARBON DIOXIDE 17 mmol/L (22-30); CHLORIDE 115 mmol/L (98-107); CREATININE RESULT 0.96 mg/dL (0.52-1.25); GLUCOSE 173 mg/dL (75-110); POTASSIUM 3.9 mmol/L (3.6-5.0); SODIUM 142.7 mmol/L (137-145)
[2016-11-11 21:53] LABS: CREATINE KINASE 4529 U/L (30-135)
[2016-11-11] MEDS ORDERED: CALCIUM GLUCONATE 1000 MG/10 ML INJ IV PRN (22:59)
[2016-11-11] MEDS ORDERED: CALCIUM GLUCONATE 1,000 MG in DEXTROSE 5%-WATER 50 ML IV ONE (23:00)
[2016-11-12] MEDS: DEXTROSE 5%-1/2 NORMAL SALINE 1,000 ML IV PRN ×2 (00:03→08:03)
[2016-11-12 01:34] LABS: ANION GAP 9 (5-19); BLOOD UREA NITROGEN 25 mg/dL (7-20); CALCIUM 7.1 mg/dL (8.4-10.2); CARBON DIOXIDE 19 mmol/L (22-30); GLUCOSE 188 mg/dL (75-110); POTASSIUM 3.7 mmol/L (3.6-5.0); SODIUM 144.2 mmol/L (137-145)
[2016-11-12 02:05] LABS: CHLORIDE 116 mmol/L (98-107)
[2016-11-12] MEDS: PIPERACILLIN SODIUM/TAZOBACTAM 3.375 GM in NORMAL SALINE 100 ML IV SCH ×4 (02:49→20:05)
[2016-11-12] MEDS: PROPOFOL 100 ML IV PRN ×4 (03:35→22:43)
[2016-11-12 05:07] LABS: ABSOLUTE EOSINOPHILS # (AUTO) 0.1 10^3/uL (0.0-0.6); ABSOLUTE LYMPHOCYTES (AUTO) 1.3 10^3/uL (0.5-4.7); ABSOLUTE NEUT (AUTO) 6.1 10^3/uL (1.7-8.2); BASOPHILS % (AUTO) 0.2 % (0-2); EOSINOPHILS % (AUTO) 0.9 % (0-6); HEMATOCRIT 26.6 % (36.0-47.0); HEMOGLOBIN 8.8 g/dL (12.0-15.5); HGB HCT DIFFERENCE -0.2; LYMPHOCYTES % (AUTO) 15.2 % (13-45); MEAN CORPUSCULAR HGB CONC 33.2 g/dL (32.0-36.0); MEAN CORPUSCULAR VOLUME 91 fl (80-97); MONOCYTES % (AUTO) 11.9 % (3-13); RED BLOOD COUNT 2.93 10^6/uL (3.72-5.28); RED CELL DISTRIBUTION WIDTH 17.3 % (11.5-14.0); SEGMENTED NEUTROPHILS % (AUTO) 71.8 % (42-78); WHITE BLOOD COUNT 8.5 10^3/uL (4.0-10.5)
[2016-11-12 05:27] LABS: ALANINE AMINOTRANSFERASE 48 U/L (9-52); ALBUMIN 2.7 g/dL (3.5-5.0); ALKALINE PHOSPHATASE 63 U/L (38-126); ANION GAP 9 (5-19); ASPARTATE AMINO TRANSFERASE 88 U/L (14-36); BILIRUBIN,DIRECT 0.4 mg/dL (0.0-0.4); BILIRUBIN,TOTAL 0.4 mg/dL (0.2-1.3); BLOOD UREA NITROGEN 22 mg/dL (7-20); CALCIUM 7.3 mg/dL (8.4-10.2); CARBON DIOXIDE 20 mmol/L (22-30); CHLORIDE 115 mmol/L (98-107); CREATININE RESULT 0.72 mg/dL (0.52-1.25); GLUCOSE 186 mg/dL (75-110); MAGNESIUM 1.8 mg/dL (1.6-2.3); POTASSIUM 3.5 mmol/L (3.6-5.0); SODIUM 143.5 mmol/L (137-145); TOTAL PROTEIN 4.9 g/dL (6.3-8.2)
[2016-11-12] MEDS: LANSOPRAZOLE 30 MG TAB.RAP.DR NG SCH (05:49)
[2016-11-12] MEDS: BUPROPION HCL 100 MG TABLET PO SCH ×3 (05:50→21:20)
[2016-11-12] MEDS: HEPARIN SOD (PORCINE) 5,000 UNIT/ML 1 ML SYRINGE SUBCUT SCH ×3 (05:50→21:20)
[2016-11-12 06:16] LABS: ARTERIAL BLOOD BASE EXCESS -4.1 mmol/L; ARTERIAL BLOOD O2 SATURATION 98.7 % (94-98)
--- NOTE | 2016-11-12 07:54 | RADIOLOGY REPORT (SQ) ---
EXAM DESCRIPTION: CHEST SINGLE VIEW COMPLETED DATE/TIME: 11/12/2016 6:55 am REASON FOR STUDY: resp failure COMPARISON: 11/11/2016. EXAM PARAMETERS: NUMBER OF VIEWS: One view. TECHNIQUE: Single frontal radiographic view of the chest acquired. RADIATION DOSE: NA LIMITATIONS: None. FINDINGS: LUNGS AND PLEURA: Mild central pulmonary edema pattern, including small left perihilar pat chiness. Moderate lung volume. Small left basilar atelectasis or scar. MEDIASTINUM AND HILAR STRUCTURES: No masses. Contour normal. HEART AND VASCULAR STRUCTURES: Heart normal in size. Normal vasculature. BONES: No acute findings. HARDWARE: Adequate appearing endotracheal tube. Upper abdominal clips. Likely adequate NG tube with some distal obscuration. OTHER: No other significant finding. IMPRESSION: No significant interval change. TECHNICAL DOCUMENTATION: JOB ID: [id number]
--- NOTE | 2016-11-12 07:55 | PDOC PROGRESS REPORT ---
Subjective Progress Note for:: 11/12/16 Physical Exam Vital Signs: Temp Pulse Resp BP Pulse Ox 100.8 F H 75 14 130/64 H 100 11/11/16 10:00 11/12/16 01:00 11/12/16 06:01 11/12/16 06:00 11/12/16 06:01 Intake & Output 11/11/16 11/12/16 11/13/16 06:59 06:59 06:59 Intake Total 2967 4802 Output Total 551 2606 Balance 2316 1139 Weight 75.7 kg 76.2 kg Results Laboratory Results: 11/12/16 05:00 11/12/16 05:00 11/11/16 11/11/16 11/11/16 09:00 09:00 10:25 WBC 9.4 RBC 3.15 L Hgb 9.5 L Hct 28.2 L MCV 90 MCH 30.1 MCHC 33.6 RDW 17.2 H Plt Count 140 L Seg Neutrophils % 81.2 H Lymphocytes % 8.4 L Monocytes % 10.1 Eosinophils % 0.1 Basophils % 0.2 Absolute Neutrophils 7.6 Absolute Lymphocytes 0.8 Absolute Monocytes 1.0 Absolute Eosinophils 0.0 Absolute Basophils 0.0 Carbonic Acid 1.29 HCO3/H2CO3 Ratio 14:1 ABG pH 7.27 L ABG pCO2 43.0 ABG pO2 131.5 H ABG HCO3 19.3 L ABG O2 Saturation 98.2 H ABG Base Excess -7.2 FiO2 35% Sodium 143.1 Potassium 4.1 Chloride 113 H Carbon Dioxide 18 L Anion Gap 12 BUN 40 H Creatinine 1.50 H Est GFR ( Amer) 42 L Est GFR (Non-Af Amer) 35 L Glucose 96 Calcium 6.7 L* Magnesium Total Bilirubin 0.5 AST 143 H ALT 53 H Alkaline Phosphatase 71 Total Protein 5.2 L Albumin 2.9 L 11/11/16 11/11/16 11/11/16 13:23 17:00 21:00 WBC RBC Hgb Hct MCV MCH MCHC RDW Plt Count Seg Neutrophils % Lymphocytes % Monocytes % Eosinophils % Basophils % Absolute Neutrophils Absolute Lymphocytes Absolute Monocytes Absolute Eosinophils Absolute Basophils Carbonic Acid HCO3/H2CO3 Ratio ABG pH ABG pCO2 ABG pO2 ABG HCO3 ABG O2 Saturation ABG Base Excess FiO2 Sodium 145.2 H 144.3 142.7 Potassium 3.4 L 3.8 3.9 Chloride 115 H 115 H 115 H Carbon Dioxide 18 L 16 L 17 L Anion Gap 12 13 11 BUN 34 H 31 H 28 H Creatinine 1.23 1.09 0.96 Est GFR ( Amer) 53 L > 60 > 60 Est GFR (Non-Af Amer) 44 L 51 L 59 L Glucose 91 128 H 173 H Calcium 6.7 L* 7.0 L* 7.0 L* Magnesium Total Bilirubin AST ALT Alkaline Phosphatase Total Protein Albumin 11/11/16 11/12/16 11/12/16 21:00 01:00 05:00 WBC 8.5 RBC 2.93 L Hgb 8.8 L Hct 26.6 L MCV 91 MCH 30.0 MCHC 33.2 RDW 17.3 H Plt Count 138 L Seg Neutrophils % 71.8 Lymphocytes % 15.2 Monocytes % 11.9 Eosinophils % 0.9 Basophils % 0.2 Absolute Neutrophils 6.1 Absolute Lymphocytes 1.3 Absolute Monocytes 1.0 Absolute Eosinophils 0.1 Absolute Basophils 0.0 Carbonic Acid HCO3/H2CO3 Ratio ABG pH ABG pCO2 ABG pO2 ABG HCO3 ABG O2 Saturation ABG Base Excess FiO2 Sodium 144.2 Potassium 3.7 Chloride 116 H Carbon Dioxide 19 L Anion Gap 9 BUN 25 H Creatinine 0.80 Est GFR ( Amer) > 60 Est GFR (Non-Af Amer) > 60 Glucose 188 H Calcium 7.1 L Magnesium Total Bilirubin AST ALT Alkaline Phosphatase Total Protein Albumin 2.9 L 11/12/16 11/12/16 05:00 06:05 WBC RBC Hgb Hct MCV MCH MCHC RDW Plt Count Seg Neutrophils % Lymphocytes % Monocytes % Eosinophils % Basophils % Absolute Neutrophils Absolute Lymphocytes Absolute Monocytes Absolute Eosinophils Absolute Basophils Carbonic Acid 1.14 HCO3/H2CO3 Ratio 18:1 ABG pH 7.36 ABG pCO2 37.9 ABG pO2 141.6 H ABG HCO3 20.9 ABG O2 Saturation 98.7 H ABG Base Excess -4.1 FiO2 40% Sodium 143.5 Potassium 3.5 L Chloride 115 H Carbon Dioxide 20 L Anion Gap 9 BUN 22 H Creatinine 0.72 Est GFR ( Amer) > 60 Est GFR (Non-Af Amer) > 60 Glucose 186 H Calcium 7.3 L Magnesium 1.8 Total Bilirubin 0.4 AST 88 H ALT 48 Alkaline Phosphatase 63 Total Protein 4.9 L Albumin 2.7 L 11/11/16 11/11/16 11/11/16 03:40 09:00 13:23 Creatine Kinase 6633 H 6107 H 5985 H 11/11/16 21:00 Creatine Kinase 4529 H Impressions: Head CT 11/10/16 18:27 IMPRESSION: No acute intracranial findings. Assessment & Plan - Diagnosis (1) Acute respiratory failure Is this a current diagnosis for this admission?: YesPlan: Continue mechanical ventilation for now. Pulmonary medicine following. (2) Septic shock Is this a current diagnosis for this admission?: YesPlan: Wean Levophed as tolerated to maintain mean arterial pressure greater than 65. Secondary to pneumonia. (3) Aspiration pneumonia Is this a current diagnosis for this admission?: YesPlan: Likely bacterial. High probability of gram-negative organism. Continue IV Zosyn and IV vancomycin. Add IV Levaquin. Blood cultures and sputum cultures been (4) Acute kidney injury Is this a current diagnosis for this admission?: YesPlan: Resolved. Continue aggressive IV fluids until CPK level. (5) Metabolic encephalopathy Is this a current diagnosis for this admission?: YesPlan: Likely multifactorial to include medication issues and infectious disease issues. Continue supportive care. (6) Rhabdomyolysis Qualifiers: Rhabdomyolysis type: non-traumatic Qualified Code(s): M62.82 - Rhabdomyolysis Is this a current diagnosis for this admission?: YesPlan: IV fluids. Repeat CPK level in the morning. (7) Chronic back pain Qualifiers: Back pain location: back pain in unspecified location Is this a current diagnosis for this admission?: YesPlan: Chronic opiate dependence. - Time Critical Time spent with patient: 35 or more minutes
[2016-11-12 09:40] LABS: ANION GAP 7 (5-19); BLOOD UREA NITROGEN 20 mg/dL (7-20); CALCIUM 7.3 mg/dL (8.4-10.2); CARBON DIOXIDE 21 mmol/L (22-30); CHLORIDE 115 mmol/L (98-107); CREATININE RESULT 0.67 mg/dL (0.52-1.25); GLUCOSE 198 mg/dL (75-110); POTASSIUM 3.4 mmol/L (3.6-5.0); SODIUM 142.5 mmol/L (137-145)
[2016-11-12] MEDS: LEVOFLOXACIN 750 MG/D5W RTU 150 ML IV SCH (11:27)
[2016-11-12] MEDS: FUROSEMIDE INJ/PF 20 MG/2 ML SDV IV SCH ×2 (11:28→21:20)
[2016-11-12] MEDS: DOCUSATE SODIUM 100 MG CAPSULE PO SCH ×2 (11:29→17:47)
--- NOTE | 2016-11-12 11:32 | PDOC PROGRESS REPORT ---
Subjective Progress Note for:: 11/12/16 Subjective:: Intubated and sedated Physical Exam Vital Signs: Temp Pulse Resp BP Pulse Ox 100.8 F H 75 14 130/64 H 93 11/11/16 10:00 11/12/16 01:00 11/12/16 06:01 11/12/16 06:00 11/12/16 08:24 Intake & Output 11/11/16 11/12/16 11/13/16 06:59 06:59 06:59 Intake Total 2967 4802 Output Total 982 9955 Balance 2317 2447 Weight 75.7 kg 76.2 kg General appearance: PRESENT: no acute distress, disheveled, well-developed Head exam: PRESENT: atraumatic, normocephalic Eye exam: PRESENT: conjunctiva pale Neck exam: ABSENT: carotid bruit, JVD, lymphadenopathy, thyromegaly Respiratory exam: PRESENT: decreased breath sounds, prolonged expiratory phas, rhonchi, symmetrical, unlabored, other - Endotracheal tube in place Cardiovascular exam: PRESENT: RRR, +S1, +S2 Pulses: PRESENT: normal radial pulses GI/Abdominal exam: PRESENT: normal bowel sounds, soft. ABSENT: distended, guarding, mass, organolmegaly, rebound, tenderness Rectal exam: PRESENT: deferred Gentrourinary exam: PRESENT: indwelling catheter Musculoskeletal exam: PRESENT: normal inspection Skin exam: PRESENT: dry, warm Results Laboratory Results: 11/12/16 05:00 11/12/16 05:00 11/11/16 11/11/16 11/11/16 09:00 09:00 10:25 WBC 9.4 RBC 3.15 L Hgb 9.5 L Hct 28.2 L MCV 90 MCH 30.1 MCHC 33.6 RDW 17.2 H Plt Count 140 L Seg Neutrophils % 81.2 H Lymphocytes % 8.4 L Monocytes % 10.1 Eosinophils % 0.1 Basophils % 0.2 Absolute Neutrophils 7.6 Absolute Lymphocytes 0.8 Absolute Monocytes 1.0 Absolute Eosinophils 0.0 Absolute Basophils 0.0 Carbonic Acid 1.29 HCO3/H2CO3 Ratio 14:1 ABG pH 7.27 L ABG pCO2 43.0 ABG pO2 131.5 H ABG HCO3 19.3 L ABG O2 Saturation 98.2 H ABG Base Excess -7.2 FiO2 35% Sodium 143.1 Potassium 4.1 Chloride 113 H Carbon Dioxide 18 L Anion Gap 12 BUN 40 H Creatinine 1.50 H Est GFR ( Amer) 42 L Est GFR (Non-Af Amer) 35 L Glucose 96 Calcium 6.7 L* Magnesium Total Bilirubin 0.5 AST 143 H ALT 53 H Alkaline Phosphatase 71 Total Protein 5.2 L Albumin 2.9 L 11/11/16 11/11/16 11/11/16 13:23 17:00 21:00 WBC RBC Hgb Hct MCV MCH MCHC RDW Plt Count Seg Neutrophils % Lymphocytes % Monocytes % Eosinophils % Basophils % Absolute Neutrophils Absolute Lymphocytes Absolute Monocytes Absolute Eosinophils Absolute Basophils Carbonic Acid HCO3/H2CO3 Ratio ABG pH ABG pCO2 ABG pO2 ABG HCO3 ABG O2 Saturation ABG Base Excess FiO2 Sodium 145.2 H 144.3 142.7 Potassium 3.4 L 3.8 3.9 Chloride 115 H 115 H 115 H Carbon Dioxide 18 L 16 L 17 L Anion Gap 12 13 11 BUN 34 H 31 H 28 H Creatinine 1.23 1.09 0.96 Est GFR ( Amer) 53 L > 60 > 60 Est GFR (Non-Af Amer) 44 L 51 L 59 L Glucose 91 128 H 173 H Calcium 6.7 L* 7.0 L* 7.0 L* Magnesium Total Bilirubin AST ALT Alkaline Phosphatase Total Protein Albumin 11/11/16 11/12/16 11/12/16 21:00 01:00 05:00 WBC 8.5 RBC 2.93 L Hgb 8.8 L Hct 26.6 L MCV 91 MCH 30.0 MCHC 33.2 RDW 17.3 H Plt Count 138 L Seg Neutrophils % 71.8 Lymphocytes % 15.2 Monocytes % 11.9 Eosinophils % 0.9 Basophils % 0.2 Absolute Neutrophils 6.1 Absolute Lymphocytes 1.3 Absolute Monocytes 1.0 Absolute Eosinophils 0.1 Absolute Basophils 0.0 Carbonic Acid HCO3/H2CO3 Ratio ABG pH ABG pCO2 ABG pO2 ABG HCO3 ABG O2 Saturation ABG Base Excess FiO2 Sodium 144.2 Potassium 3.7 Chloride 116 H Carbon Dioxide 19 L Anion Gap 9 BUN 25 H Creatinine 0.80 Est GFR ( Amer) > 60 Est GFR (Non-Af Amer) > 60 Glucose 188 H Calcium 7.1 L Magnesium Total Bilirubin AST ALT Alkaline Phosphatase Total Protein Albumin 2.9 L 11/12/16 11/12/16 05:00 06:05 WBC RBC Hgb Hct MCV MCH MCHC RDW Plt Count Seg Neutrophils % Lymphocytes % Monocytes % Eosinophils % Basophils % Absolute Neutrophils Absolute Lymphocytes Absolute Monocytes Absolute Eosinophils Absolute Basophils Carbonic Acid 1.14 HCO3/H2CO3 Ratio 18:1 ABG pH 7.36 ABG pCO2 37.9 ABG pO2 141.6 H ABG HCO3 20.9 ABG O2 Saturation 98.7 H ABG Base Excess -4.1 FiO2 40% Sodium 143.5 Potassium 3.5 L Chloride 115 H Carbon Dioxide 20 L Anion Gap 9 BUN 22 H Creatinine 0.72 Est GFR ( Amer) > 60 Est GFR (Non-Af Amer) > 60 Glucose 186 H Calcium 7.3 L Magnesium 1.8 Total Bilirubin 0.4 AST 88 H ALT 48 Alkaline Phosphatase 63 Total Protein 4.9 L Albumin 2.7 L 11/11/16 11/11/16 11/11/16 03:40 09:00 13:23 Creatine Kinase 6633 H 6107 H 5985 H 11/11/16 21:00 Creatine Kinase 4529 H Impressions: Head CT 11/10/16 18:27 IMPRESSION: No acute intracranial findings. Chest X-Ray 11/12/16 06:00 IMPRESSION: No significant interval change. Assessment & Plan - Diagnosis (1) Aspiration pneumonitis Is this a current diagnosis for this admission?: YesPlan: Radiographic evidence for pneumonitis probable aspiration metabolic acidosis 11/11/16 12:09 Gram Stain - Preliminary Tracheal Aspirate Sputum Culture - Preliminary Gram Negative Rods (2) Airway compromise Is this a current diagnosis for this admission?: Yes (3) Metabolic acidosis Is this a current diagnosis for this admission?: Yes - Time Critical Time spent with patient: 25-34 minutes
[2016-11-12] MEDS ORDERED: TOBRAMYCIN SULFATE INJ 80 MG/2 ML VIAL NEB ONE (12:30)
[2016-11-12] MEDS ORDERED: TOBRAMYCIN SULFATE NEB 40 MG/ML 30 ML NEB ONE (13:00)
[2016-11-12 13:52] LABS: ANION GAP 5 (5-19); BLOOD UREA NITROGEN 18 mg/dL (7-20); CALCIUM 7.5 mg/dL (8.4-10.2); CARBON DIOXIDE 23 mmol/L (22-30); CHLORIDE 113 mmol/L (98-107); CREATININE RESULT 0.61 mg/dL (0.52-1.25); GLUCOSE 184 mg/dL (75-110); POTASSIUM 3.3 mmol/L (3.6-5.0); SODIUM 141.4 mmol/L (137-145)
[2016-11-12] MEDS: VANCOMYCIN HCL 1,500 MG in DEXTROSE 5%-WATER 250 ML IV SCH (16:19)
[2016-11-12 17:33] LABS: ANION GAP 7 (5-19); BLOOD UREA NITROGEN 16 mg/dL (7-20); CALCIUM 7.5 mg/dL (8.4-10.2); CARBON DIOXIDE 21 mmol/L (22-30); CHLORIDE 114 mmol/L (98-107); CREATININE RESULT 0.65 mg/dL (0.52-1.25); GLUCOSE 162 mg/dL (75-110); POTASSIUM 3.1 mmol/L (3.6-5.0); SODIUM 142.3 mmol/L (137-145)
[2016-11-12] MEDS ORDERED: TOBRAMYCIN SULFATE INJ 80 MG/2 ML VIAL NEB SCH (20:00)
[2016-11-12] MEDS: TOBRAMYCIN SULFATE NEB 40 MG/ML 30 ML NEB SCH (20:00)
[2016-11-12 21:20] LABS: ANION GAP 7 (5-19); BLOOD UREA NITROGEN 15 mg/dL (7-20); CALCIUM 7.5 mg/dL (8.4-10.2); CARBON DIOXIDE 21 mmol/L (22-30); CHLORIDE 113 mmol/L (98-107); CREATININE RESULT 0.64 mg/dL (0.52-1.25); GLUCOSE 127 mg/dL (75-110); POTASSIUM 3.2 mmol/L (3.6-5.0); SODIUM 141.3 mmol/L (137-145)
[2016-11-12 23:04] LABS: ADD ON TESTING BLD IN LAB ACKNOWLEDGE
[2016-11-12] MEDS: POTASSI CL 20 MEQ/NS 1L 1,000 ML IV PRN (23:09)
[2016-11-12] MEDS: POTASSI CL 20 MEQ/50 ML RIDER 20 MEQ/50 ML RTUPB IV SCH (23:10)
[2016-11-12 23:15] LABS: CREATINE KINASE 1330 U/L (30-135)
[2016-11-13] MEDS: POTASSI CL 20 MEQ/50 ML RIDER 20 MEQ/50 ML RTUPB IV SCH (01:03)
[2016-11-13 01:39] LABS: ANION GAP 7 (5-19); BLOOD UREA NITROGEN 14 mg/dL (7-20); CALCIUM 7.7 mg/dL (8.4-10.2); CARBON DIOXIDE 24 mmol/L (22-30); CHLORIDE 112 mmol/L (98-107); CREATININE RESULT 0.64 mg/dL (0.52-1.25); GLUCOSE 98 mg/dL (75-110); POTASSIUM 3.3 mmol/L (3.6-5.0)
[2016-11-13] MEDS: PROPOFOL 100 ML IV PRN ×2 (02:17→05:06)
[2016-11-13] MEDS: PIPERACILLIN SODIUM/TAZOBACTAM 3.375 GM in NORMAL SALINE 100 ML IV SCH ×4 (02:21→20:50)
[2016-11-13 04:40] LABS: ARTERIAL BLOOD BASE EXCESS -3.8 mmol/L; ARTERIAL BLOOD O2 SATURATION 98.6 % (94-98)
[2016-11-13 05:02] LABS: ABSOLUTE EOSINOPHILS # (AUTO) 0.1 10^3/uL (0.0-0.6); ABSOLUTE LYMPHOCYTES (AUTO) 1.1 10^3/uL (0.5-4.7); ABSOLUTE MONOCYTES (AUTO) 1.1 10^3/uL (0.1-1.4); ABSOLUTE NEUT (AUTO) 6.6 10^3/uL (1.7-8.2); BASOPHILS % (AUTO) 0.4 % (0-2); EOSINOPHILS % (AUTO) 1.1 % (0-6); HEMATOCRIT 30.2 % (36.0-47.0); HGB HCT DIFFERENCE -0.2; LYMPHOCYTES % (AUTO) 12.1 % (13-45); MEAN CORPUSCULAR HEMOGLOBIN 30.3 pg (27.0-33.4); MEAN CORPUSCULAR HGB CONC 33.2 g/dL (32.0-36.0); MEAN CORPUSCULAR VOLUME 91 fl (80-97); MONOCYTES % (AUTO) 12.2 % (3-13); RED BLOOD COUNT 3.32 10^6/uL (3.72-5.28); RED CELL DISTRIBUTION WIDTH 17.5 % (11.5-14.0); SEGMENTED NEUTROPHILS % (AUTO) 74.2 % (42-78)
[2016-11-13] MEDS: BUPROPION HCL 100 MG TABLET PO SCH ×3 (05:06→21:45)
[2016-11-13] MEDS: HEPARIN SOD (PORCINE) 5,000 UNIT/ML 1 ML SYRINGE SUBCUT SCH (05:06)
[2016-11-13] MEDS: LANSOPRAZOLE 30 MG TAB.RAP.DR NG SCH (05:06)
[2016-11-13 05:23] LABS: ANION GAP 7 (5-19); BLOOD UREA NITROGEN 14 mg/dL (7-20); CALCIUM 7.6 mg/dL (8.4-10.2); CARBON DIOXIDE 23 mmol/L (22-30); CHLORIDE 113 mmol/L (98-107); CREATINE KINASE 1031 U/L (30-135); CREATININE RESULT 0.64 mg/dL (0.52-1.25); GLUCOSE 100 mg/dL (75-110); MAGNESIUM 1.6 mg/dL (1.6-2.3); POTASSIUM 3.3 mmol/L (3.6-5.0); SODIUM 143.1 mmol/L (137-145)
[2016-11-13] MEDS: POTASSI CL 20 MEQ/NS 1L 1,000 ML IV PRN ×2 (05:40→20:50)
--- NOTE | 2016-11-13 07:26 | RADIOLOGY REPORT (SQ) ---
EXAM DESCRIPTION: CHEST SINGLE VIEW COMPLETED DATE/TIME: 11/13/2016 6:45 am REASON FOR STUDY: resp failure, PNA COMPARISON: 11/12/2016. EXAM PARAMETERS: NUMBER OF VIEWS: One view. TECHNIQUE: Single frontal radiographic view of the chest acquired. RADIATION DOSE: NA LIMITATIONS: None. FINDINGS: LUNGS AND PLEURA: Small streakiness of the left lower lobe. Moderate lung volume. Mild i nterstitial markings. MEDIASTINUM AND HILAR STRUCTURES: No masses. Contour normal. HEART AND VASCULAR STRUCTURES: Heart normal in size. Normal vasculature. BONES: No acute findings. HARDWARE: Adequate appearing endotracheal tube. Likely adequate NG tube courses inferiorly off the i mage over the left upper abdominal quadrant, partially obscured. OTHER: No other significant finding. IMPRESSION: No significant interval change. TECHNICAL DOCUMENTATION: JOB ID: [id number]
[2016-11-13] MEDS: TOBRAMYCIN SULFATE NEB 40 MG/ML 30 ML NEB SCH ×2 (08:15→20:41)
[2016-11-13] MEDS: IPRATROPIUM/ALBUTEROL 0.5-2.5 MG/3 ML AMPUL NEB PRN (09:15)
[2016-11-13] MEDS: LEVOFLOXACIN 750 MG/D5W RTU 150 ML IV SCH (09:39)
[2016-11-13] MEDS: FONDAPARINUX SODIUM INJ 2.5 MG/0.5 ML DISP.SYRIN SUBCUT SCH (09:39)
[2016-11-13] MEDS: DOCUSATE SODIUM 100 MG CAPSULE PO SCH ×2 (09:42→17:03)
[2016-11-13] MEDS ORDERED: RACEPINEPHRINE HCL 2.25% NEB 0.5 ML AMPUL NEB ONE ×2 (10:14→11:00)
[2016-11-13] MEDS ORDERED: DEXAMETHASONE SOD PHOSPHATE INJ 4 MG/1 ML VIAL ONE (10:15)
[2016-11-13] MEDS ORDERED: DEXAMETHASONE SOD PHOS INJ 10 MG/1 ML VIAL IV ONE (11:00)
--- NOTE | 2016-11-13 11:15 | PDOC PROGRESS REPORT ---
Subjective Progress Note for:: 11/13/16 Subjective:: Intubated awake and responsive Physical Exam Vital Signs: Temp Pulse Resp BP Pulse Ox 97.5 F 65 14 151/85 H 100 11/13/16 08:00 11/13/16 08:00 11/13/16 08:00 11/13/16 08:00 11/13/16 08:00 Intake & Output 11/12/16 11/13/16 11/14/16 06:59 06:59 06:59 Intake Total 4802 5854 Output Total 7879 9158 Balance 2447 -541 Weight 76.2 kg 77.8 kg General appearance: PRESENT: disheveled, thin, well-developed Head exam: PRESENT: atraumatic, normocephalic Eye exam: PRESENT: conjunctiva pale, EOMI Mouth exam: PRESENT: dry mucosa, neck supple, tongue midline, other - ET tube in place Neck exam: ABSENT: carotid bruit, JVD, lymphadenopathy, thyromegaly Respiratory exam: PRESENT: decreased breath sounds, prolonged expiratory phas, rhonchi, symmetrical, unlabored Cardiovascular exam: PRESENT: RRR, +S1, +S2 Pulses: PRESENT: normal radial pulses GI/Abdominal exam: PRESENT: normal bowel sounds, soft. ABSENT: distended, guarding, mass, organolmegaly, rebound, tenderness Rectal exam: PRESENT: deferred Gentrourinary exam: PRESENT: indwelling catheter Musculoskeletal exam: PRESENT: normal inspection Neurological exam: PRESENT: awake Psychiatric exam: PRESENT: anxious Skin exam: PRESENT: dry, warm Results Laboratory Results: 11/13/16 04:53 11/13/16 04:53 11/12/16 11/12/16 11/12/16 09:09 13:18 16:55 WBC RBC Hgb Hct MCV MCH MCHC RDW Plt Count Seg Neutrophils % Lymphocytes % Monocytes % Eosinophils % Basophils % Absolute Neutrophils Absolute Lymphocytes Absolute Monocytes Absolute Eosinophils Absolute Basophils Carbonic Acid HCO3/H2CO3 Ratio ABG pH ABG pCO2 ABG pO2 ABG HCO3 ABG O2 Saturation ABG Base Excess FiO2 Sodium 142.5 141.4 142.3 Potassium 3.4 L 3.3 L 3.1 L Chloride 115 H 113 H 114 H Carbon Dioxide 21 L 23 21 L Anion Gap 7 5 7 BUN 20 18 16 Creatinine 0.67 0.61 0.65 Est GFR ( Amer) > 60 > 60 > 60 Est GFR (Non-Af Amer) > 60 > 60 > 60 Glucose 198 H 184 H 162 H Calcium 7.3 L 7.5 L 7.5 L Magnesium 11/12/16 11/12/16 11/13/16 20:55 20:55 01:08 WBC RBC Hgb Hct MCV MCH MCHC RDW Plt Count Seg Neutrophils % Lymphocytes % Monocytes % Eosinophils % Basophils % Absolute Neutrophils Absolute Lymphocytes Absolute Monocytes Absolute Eosinophils Absolute Basophils Carbonic Acid HCO3/H2CO3 Ratio ABG pH ABG pCO2 ABG pO2 ABG HCO3 ABG O2 Saturation ABG Base Excess FiO2 Sodium 141.3 143.0 Potassium 3.2 L 3.3 L Chloride 113 H 112 H Carbon Dioxide 21 L 24 Anion Gap 7 7 BUN 15 14 Creatinine 0.64 0.64 Est GFR ( Amer) > 60 > 60 Est GFR (Non-Af Amer) > 60 > 60 Glucose 127 H 98 Calcium 7.5 L 7.7 L Magnesium 1.6 11/13/16 11/13/16 11/13/16 04:35 04:53 04:53 WBC 9.0 RBC 3.32 L Hgb 10.0 L Hct 30.2 L MCV 91 MCH 30.3 MCHC 33.2 RDW 17.5 H Plt Count 132 L Seg Neutrophils % 74.2 Lymphocytes % 12.1 L Monocytes % 12.2 Eosinophils % 1.1 Basophils % 0.4 Absolute Neutrophils 6.6 Absolute Lymphocytes 1.1 Absolute Monocytes 1.1 Absolute Eosinophils 0.1 Absolute Basophils 0.0 Carbonic Acid 1.07 HCO3/H2CO3 Ratio 19:1 ABG pH 7.38 ABG pCO2 35.6 ABG pO2 132.4 H ABG HCO3 20.8 ABG O2 Saturation 98.6 H ABG Base Excess -3.8 FiO2 40% Sodium 143.1 Potassium 3.3 L Chloride 113 H Carbon Dioxide 23 Anion Gap 7 BUN 14 Creatinine 0.64 Est GFR ( Amer) > 60 Est GFR (Non-Af Amer) > 60 Glucose 100 Calcium 7.6 L Magnesium 1.6 11/11/16 12:09 Tracheal Aspirate Gram Stain - Final 11/11/16 11/11/16 11/11/16 03:40 09:00 13:23 Creatine Kinase 6633 H 6107 H 5985 H 11/11/16 11/12/16 11/13/16 21:00 20:55 04:53 Creatine Kinase 4529 H 1330 H 1031 H Impressions: Head CT 11/10/16 18:27 IMPRESSION: No acute intracranial findings. Chest X-Ray 11/13/16 06:00 IMPRESSION: No significant interval change. Assessment & Plan - Diagnosis (1) Aspiration pneumonitis Is this a current diagnosis for this admission?: Yes (2) Airway compromise Is this a current diagnosis for this admission?: YesPlan: Minute ventilation, FiO2, respiratory, airway pressures suggest successful extubation will proceed with extubation (3) Metabolic acidosis Is this a current diagnosis for this admission?: Yes - Time Critical Time spent with patient: 35 or more minutes - 55 minutes extubation patient developed some stridor was given racemic epinephrine and Decadron
[2016-11-13] MEDS ORDERED: LORAZEPAM INJ 2 MG/1 ML VIAL IV PRN ×2 (11:29→15:50)
[2016-11-13] MEDS ORDERED: LORAZEPAM INJ 2 MG/1 ML VIAL ONE (11:29)
[2016-11-13] MEDS: MORPHINE SULFATE 10 MG/ML INJ IV PRN (14:51)
--- NOTE | 2016-11-13 14:53 | PDOC PROGRESS REPORT ---
Subjective Progress Note for:: 11/13/16 Subjective:: Patient has been stable on mechanical ventilation overnight. Blood pressure is now stable off pressors. She has been afebrile overnight. Unable to obtain history from patient secondary to sedated/intubated state. Physical Exam Vital Signs: Temp Pulse Resp BP Pulse Ox 98.8 F 58 L 15 157/110 H 100 11/13/16 12:00 11/13/16 13:00 11/13/16 14:00 11/13/16 13:32 11/13/16 14:00 Intake & Output 11/12/16 11/13/16 11/14/16 06:59 06:59 06:59 Intake Total 4802 8024 Output Total 4889 6585 350 Balance 5900 -203 -350 Weight 76.2 kg 77.8 kg GENERAL: No acute distress, sedated on mechanical ventilation HEENT: Conjunctiva clear, nonicteric, moist mucous membranes, no JVD, midline trachea, endotracheal tube in place RESPIRATORY: Clear to auscultation bilaterally, no wheezes, no rhonchi CARDIAC: Regular rate and rhythm, no murmurs/gallops/rubs ABDOMEN: Soft, nondistended, nontender, positive bowel sounds, no rebound, no guarding EXTREMETIES: No edema, cyanosis, clubbing NEUROLOGIC: Sedated/intubate SKIN: No rash, wounds Results Laboratory Results: 11/13/16 04:53 11/13/16 04:53 11/12/16 11/12/16 11/12/16 16:55 20:55 20:55 WBC RBC Hgb Hct MCV MCH MCHC RDW Plt Count Seg Neutrophils % Lymphocytes % Monocytes % Eosinophils % Basophils % Absolute Neutrophils Absolute Lymphocytes Absolute Monocytes Absolute Eosinophils Absolute Basophils Carbonic Acid HCO3/H2CO3 Ratio ABG pH ABG pCO2 ABG pO2 ABG HCO3 ABG O2 Saturation ABG Base Excess FiO2 Sodium 142.3 141.3 Potassium 3.1 L 3.2 L Chloride 114 H 113 H Carbon Dioxide 21 L 21 L Anion Gap 7 7 BUN 16 15 Creatinine 0.65 0.64 Est GFR ( Amer) > 60 > 60 Est GFR (Non-Af Amer) > 60 > 60 Glucose 162 H 127 H Calcium 7.5 L 7.5 L Magnesium 1.6 11/13/16 11/13/16 11/13/16 01:08 04:35 04:53 WBC RBC Hgb Hct MCV MCH MCHC RDW Plt Count Seg Neutrophils % Lymphocytes % Monocytes % Eosinophils % Basophils % Absolute Neutrophils Absolute Lymphocytes Absolute Monocytes Absolute Eosinophils Absolute Basophils Carbonic Acid 1.07 HCO3/H2CO3 Ratio 19:1 ABG pH 7.38 ABG pCO2 35.6 ABG pO2 132.4 H ABG HCO3 20.8 ABG O2 Saturation 98.6 H ABG Base Excess -3.8 FiO2 40% Sodium 143.0 143.1 Potassium 3.3 L 3.3 L Chloride 112 H 113 H Carbon Dioxide 24 23 Anion Gap 7 7 BUN 14 14 Creatinine 0.64 0.64 Est GFR ( Amer) > 60 > 60 Est GFR (Non-Af Amer) > 60 > 60 Glucose 98 100 Calcium 7.7 L 7.6 L Magnesium 1.6 11/13/16 04:53 WBC 9.0 RBC 3.32 L Hgb 10.0 L Hct 30.2 L MCV 91 MCH 30.3 MCHC 33.2 RDW 17.5 H Plt Count 132 L Seg Neutrophils % 74.2 Lymphocytes % 12.1 L Monocytes % 12.2 Eosinophils % 1.1 Basophils % 0.4 Absolute Neutrophils 6.6 Absolute Lymphocytes 1.1 Absolute Monocytes 1.1 Absolute Eosinophils 0.1 Absolute Basophils 0.0 Carbonic Acid HCO3/H2CO3 Ratio ABG pH ABG pCO2 ABG pO2 ABG HCO3 ABG O2 Saturation ABG Base Excess FiO2 Sodium Potassium Chloride Carbon Dioxide Anion Gap BUN Creatinine Est GFR ( Amer) Est GFR (Non-Af Amer) Glucose Calcium Magnesium 11/11/16 12:09 Tracheal Aspirate Gram Stain - Final 11/11/16 11/11/16 11/11/16 03:40 09:00 13:23 Creatine Kinase 6633 H 6107 H 5985 H 11/11/16 11/12/16 11/13/16 21:00 20:55 04:53 Creatine Kinase 4529 H 1330 H 1031 H Impressions: Head CT 11/10/16 18:27 IMPRESSION: No acute intracranial findings. Chest X-Ray 11/13/16 06:00 IMPRESSION: No significant interval change. Assessment & Plan - Diagnosis (1) Acute respiratory failure Is this a current diagnosis for this admission?: YesPlan: Continue mechanical ventilation for now. Pulmonary medicine following. Hopefully patient will extubate today. (2) Septic shock Is this a current diagnosis for this admission?: YesPlan: Patient now afebrile. Blood pressure stable off pressors. Secondary to pneumonia. (3) Aspiration pneumonia Is this a current diagnosis for this admission?: YesPlan: Likely bacterial. High probability of gram-negative organism. Continue IV Zosyn and IV Levaquin. Discontinue IV vancomycin. Sputum culture growing E. coli and strep pneumonia. (4) Acute kidney injury Is this a current diagnosis for this admission?: YesPlan: Resolved. Continue aggressive IV fluids until CPK level. (5) Metabolic encephalopathy Is this a current diagnosis for this admission?: YesPlan: Likely multifactorial to include medication issues and infectious disease issues. Continue supportive care. (6) Rhabdomyolysis Qualifiers: Rhabdomyolysis type: non-traumatic Qualified Code(s): M62.82 - Rhabdomyolysis Is this a current diagnosis for this admission?: YesPlan: IV fluids. Repeat CPK level in the morning. (7) Chronic back pain Qualifiers: Back pain location: back pain in unspecified location Is this a current diagnosis for this admission?: YesPlan: Chronic opiate dependence. - Time Critical Time spent with patient: 35 or more minutes
[2016-11-13] MEDS ORDERED: MORPHINE SULFATE 10 MG/ML INJ IV PRN (14:54)
[2016-11-13] MEDS ORDERED: (PENDING PHARMACY ID) (Propranolol Hcl [Inderal La] 80 MG) PO SCH (15:00)
[2016-11-13] MEDS: VANCOMYCIN HCL 1,500 MG in DEXTROSE 5%-WATER 250 ML IV SCH (15:43)
[2016-11-13] MEDS ORDERED: OLANZAPINE INJ/PF 10 MG SDV IM ONE (16:27)
[2016-11-13] MEDS: MORPHINE SULFATE SR 15 MG TABLET PO SCH (17:03)
[2016-11-13] MEDS: PROPRANOLOL HCL 40 MG TABLET PO SCH (21:45)
[2016-11-13] MEDS: MONTELUKAST SODIUM 10 MG TABLET PO SCH (21:45)
[2016-11-13] MEDS: GABAPENTIN 300 MG CAPSULE PO SCH (21:45)
[2016-11-14] MEDS: PIPERACILLIN SODIUM/TAZOBACTAM 3.375 GM in NORMAL SALINE 100 ML IV SCH (04:00)
[2016-11-14] MEDS: POTASSI CL 20 MEQ/NS 1L 1,000 ML IV PRN (04:22)
[2016-11-14] MEDS: LANSOPRAZOLE 30 MG TAB.RAP.DR NG SCH (05:09)
[2016-11-14] MEDS: MORPHINE SULFATE SR 15 MG TABLET PO SCH ×3 (05:09→21:03)
[2016-11-14] MEDS: GABAPENTIN 300 MG CAPSULE PO SCH ×3 (05:09→21:03)
[2016-11-14] MEDS: BUPROPION HCL 100 MG TABLET PO SCH ×3 (05:09→21:02)
[2016-11-14 07:40] LABS: ABSOLUTE EOSINOPHILS # (AUTO) 0.1 10^3/uL (0.0-0.6); ABSOLUTE LYMPHOCYTES (AUTO) 1.3 10^3/uL (0.5-4.7); ABSOLUTE MONOCYTES (AUTO) 0.5 10^3/uL (0.1-1.4); ABSOLUTE NEUT (AUTO) 3.9 10^3/uL (1.7-8.2); BASOPHILS % (AUTO) 0.4 % (0-2); EOSINOPHILS % (AUTO) 1.4 % (0-6); HEMATOCRIT 27.8 % (36.0-47.0); HEMOGLOBIN 9.3 g/dL (12.0-15.5); HGB HCT DIFFERENCE 0.1; LYMPHOCYTES % (AUTO) 21.7 % (13-45); MEAN CORPUSCULAR HEMOGLOBIN 30.4 pg (27.0-33.4); MEAN CORPUSCULAR HGB CONC 33.6 g/dL (32.0-36.0); MEAN CORPUSCULAR VOLUME 91 fl (80-97); MONOCYTES % (AUTO) 8.7 % (3-13); RED BLOOD COUNT 3.07 10^6/uL (3.72-5.28); RED CELL DISTRIBUTION WIDTH 17.5 % (11.5-14.0); SEGMENTED NEUTROPHILS % (AUTO) 67.8 % (42-78); WHITE BLOOD COUNT 5.8 10^3/uL (4.0-10.5)
--- NOTE | 2016-11-14 07:41 | RADIOLOGY REPORT (SQ) ---
EXAM DESCRIPTION: CHEST SINGLE VIEW COMPLETED DATE/TIME: 11/14/2016 6:37 am REASON FOR STUDY: resp failure COMPARISON: 11/13/2016. 11/13/2016. EXAM PARAMETERS: NUMBER OF VIEWS: One view. TECHNIQUE: Single frontal radiographic view of the chest acquired. RADIATION DOSE: NA LIMITATIONS: None. FINDINGS: LUNGS AND PLEURA: Mild mixed interstitial and airspace opacities including moderate patchi ness of the left lower lobe and small right infrahilar opacity. MEDIASTINUM AND HILAR STRUCTURES: No masses. Contour normal. HEART AND VASCULAR STRUCTURES: Normal cardiac silhouette size. Atherosclerosis. BONES: No acute findings. HARDWARE: None in the chest. OTHER: No other significant finding. IMPRESSION: [id number] mixed interstitial and airspace opacities, stable. Interval extubation . TECHNICAL DOCUMENTATION: JOB ID: [id number]
[2016-11-14 07:51] LABS: ANION GAP 7 (5-19); BLOOD UREA NITROGEN 6 mg/dL (7-20); CALCIUM 7.9 mg/dL (8.4-10.2); CARBON DIOXIDE 20 mmol/L (22-30); CHLORIDE 116 mmol/L (98-107); CREATINE KINASE 611 U/L (30-135); CREATININE RESULT 0.48 mg/dL (0.52-1.25); GLUCOSE 96 mg/dL (75-110); MAGNESIUM 1.3 mg/dL (1.6-2.3); POTASSIUM 3.2 mmol/L (3.6-5.0); SODIUM 143.2 mmol/L (137-145)
[2016-11-14] MEDS: POTASSIUM CHLORIDE 10 MEQ TABLET.SA PO SCH (07:54)
[2016-11-14] MEDS ORDERED: LANSOPRAZOLE 30 MG TAB.RAP.DR PO ONE ×2 (08:45→11:00)
[2016-11-14] MEDS ORDERED: POTASSIUM CHLORIDE 20 MEQ/50 ML RTU IV ONE (09:00)
[2016-11-14] MEDS: DOCUSATE SODIUM 100 MG CAPSULE PO SCH ×2 (09:27→21:05)
[2016-11-14] MEDS: PROPRANOLOL HCL 40 MG TABLET PO SCH ×2 (09:28→21:02)
[2016-11-14] MEDS: FONDAPARINUX SODIUM INJ 2.5 MG/0.5 ML DISP.SYRIN SUBCUT SCH (09:29)
[2016-11-14] MEDS: LEVOFLOXACIN 750 MG TABLET PO SCH (09:29)
--- NOTE | 2016-11-14 11:05 | PDOC PROGRESS REPORT ---
Subjective Progress Note for:: 11/14/16 Subjective:: 24 hours status post extubation somewhat lethargic but will clear her airway easily Physical Exam Vital Signs: Temp Pulse Resp BP Pulse Ox 99.5 F 61 12 160/83 H 97 11/13/16 16:00 11/13/16 20:44 11/14/16 06:00 11/14/16 05:32 11/14/16 06:00 Intake & Output 11/13/16 11/14/16 11/15/16 06:59 06:59 06:59 Intake Total 2582 5200 Output Total 2987 5406 Balance -547 -8359 Weight 77.8 kg 77.2 kg General appearance: PRESENT: no acute distress, disheveled, thin, well-developed Head exam: PRESENT: atraumatic, normocephalic Eye exam: PRESENT: conjunctiva pale Mouth exam: PRESENT: dry mucosa, neck supple, tongue midline Neck exam: ABSENT: carotid bruit, JVD, lymphadenopathy, thyromegaly Respiratory exam: PRESENT: decreased breath sounds, prolonged expiratory phas, rhonchi, symmetrical, unlabored Cardiovascular exam: PRESENT: RRR, +S1, +S2 Pulses: PRESENT: normal radial pulses GI/Abdominal exam: PRESENT: normal bowel sounds, soft. ABSENT: distended, guarding, mass, organolmegaly, rebound, tenderness Rectal exam: PRESENT: deferred Gentrourinary exam: PRESENT: indwelling catheter Musculoskeletal exam: PRESENT: normal inspection Neurological exam: PRESENT: awake Skin exam: PRESENT: dry, warm Results Laboratory Results: 11/14/16 07:15 11/14/16 07:15 11/14/16 11/14/16 07:15 07:15 WBC 5.8 RBC 3.07 L Hgb 9.3 L Hct 27.8 L MCV 91 MCH 30.4 MCHC 33.6 RDW 17.5 H Plt Count 139 L Seg Neutrophils % 67.8 Lymphocytes % 21.7 Monocytes % 8.7 Eosinophils % 1.4 Basophils % 0.4 Absolute Neutrophils 3.9 Absolute Lymphocytes 1.3 Absolute Monocytes 0.5 Absolute Eosinophils 0.1 Absolute Basophils 0.0 Sodium 143.2 Potassium 3.2 L Chloride 116 H Carbon Dioxide 20 L Anion Gap 7 BUN 6 L Creatinine 0.48 L Est GFR ( Amer) > 60 Est GFR (Non-Af Amer) > 60 Glucose 96 Calcium 7.9 L Magnesium 1.3 L 11/11/16 12:09 Tracheal Aspirate Gram Stain - Final 11/11/16 11/11/16 11/11/16 03:40 09:00 13:23 Creatine Kinase 6633 H 6107 H 5985 H 11/11/16 11/12/16 11/13/16 21:00 20:55 04:53 Creatine Kinase 4529 H 1330 H 1031 H 11/14/16 07:15 Creatine Kinase 611 H Impressions: Head CT 11/10/16 18:27 IMPRESSION: No acute intracranial findings. Chest X-Ray 11/14/16 06:00 IMPRESSION: [id number] mixed interstitial and airspace opacities, stable. Interval extubation. Assessment & Plan - Diagnosis (1) Aspiration pneumonitis Is this a current diagnosis for this admission?: YesPlan: Labs- All tests 24 hr 11/14/16 11/14/16 07:15 07:15 WBC 5.8 Seg Neutrophils % 67.8 Lymphocytes % 21.7 Monocytes % 8.7 Eosinophils % 1.4 Carbon Dioxide 20 L 11/11/16 12:09 Gram Stain - Final Tracheal Aspirate Sputum Culture - Preliminary Escherichia Coli Streptococcus Pneumoniae Normal Ingrid (2) Airway compromise Is this a current diagnosis for this admission?: No (3) Metabolic acidosis Is this a current diagnosis for this admission?: YesPlan: Metabolic acidosis persist - Time Critical Time spent with patient: 35 or more minutes - Spoke with RN, RT, and family members 50 minutes
[2016-11-14] MEDS: MORPHINE SULFATE 10 MG/ML INJ IV PRN (12:00)
[2016-11-14] MEDS ORDERED: HYDRALAZINE HCL INJ/PF 20 MG/1 ML SDV ONE (12:49)
--- NOTE | 2016-11-14 17:05 | PDOC PROGRESS REPORT ---
Subjective Progress Note for:: 11/14/16 Subjective:: Patient has been stable post extubation yesterday. She was initially combative and agitated after being extubated but has now been calm overnight. She is resting with her eyes closed and will not talk to me or answer questions or follow commands. Physical Exam Vital Signs: Temp Pulse Resp BP Pulse Ox 99.5 F 53 L 12 187/103 H 98 11/14/16 16:00 11/14/16 16:00 11/14/16 16:00 11/14/16 16:00 11/14/16 16:00 Intake & Output 11/13/16 11/14/16 11/15/16 06:59 06:59 06:59 Intake Total 2583 4927 Output Total 3696 3942 0647 Balance -541 -6266 -3022 Weight 77.8 kg 77.2 kg GENERAL: No acute distress HEENT: Conjunctiva clear, nonicteric, moist mucous membranes, no JVD, midline trachea RESPIRATORY: Clear to auscultation bilaterally, no wheezes, no rhonchi CARDIAC: Regular rate and rhythm, no murmurs/gallops/rubs ABDOMEN: Soft, nondistended, nontender, positive bowel sounds, no rebound, no guarding EXTREMETIES: No edema, cyanosis, clubbing NEUROLOGIC: Drowsy but arousable, will deliberately not communicate with me, CN' s grossly intact, no focal deficits SKIN: No rash, wounds PSYCH: Unusual affect Results Laboratory Results: 11/14/16 07:15 11/14/16 07:15 11/14/16 11/14/16 07:15 07:15 WBC 5.8 RBC 3.07 L Hgb 9.3 L Hct 27.8 L MCV 91 MCH 30.4 MCHC 33.6 RDW 17.5 H Plt Count 139 L Seg Neutrophils % 67.8 Lymphocytes % 21.7 Monocytes % 8.7 Eosinophils % 1.4 Basophils % 0.4 Absolute Neutrophils 3.9 Absolute Lymphocytes 1.3 Absolute Monocytes 0.5 Absolute Eosinophils 0.1 Absolute Basophils 0.0 Sodium 143.2 Potassium 3.2 L Chloride 116 H Carbon Dioxide 20 L Anion Gap 7 BUN 6 L Creatinine 0.48 L Est GFR ( Amer) > 60 Est GFR (Non-Af Amer) > 60 Glucose 96 Calcium 7.9 L Magnesium 1.3 L 11/11/16 12:09 Tracheal Aspirate Gram Stain - Final 11/11/16 11/11/16 11/11/16 03:40 09:00 13:23 Creatine Kinase 6633 H 6107 H 5985 H 11/11/16 11/12/16 11/13/16 21:00 20:55 04:53 Creatine Kinase 4529 H 1330 H 1031 H 11/14/16 07:15 Creatine Kinase 611 H Impressions: Head CT 11/10/16 18:27 IMPRESSION: No acute intracranial findings. Chest X-Ray 11/14/16 06:00 IMPRESSION: [id number] mixed interstitial and airspace opacities, stable. Interval extubation. Assessment & Plan - Diagnosis (1) Acute respiratory failure Is this a current diagnosis for this admission?: YesPlan: Stable post extubation on 11/13/2016. (2) Septic shock Is this a current diagnosis for this admission?: Yes (3) Aspiration pneumonia Is this a current diagnosis for this admission?: YesPlan: Likely bacterial. High probability of gram-negative organism. Sputum culture growing E. coli and strep pneumonia. Discontinue IV antibiotics. Start oral Levaquin. (4) Acute kidney injury Is this a current diagnosis for this admission?: YesPlan: Resolved. Continue aggressive IV fluids until CPK level. (5) Metabolic encephalopathy Is this a current diagnosis for this admission?: YesPlan: Improving. Likely multifactorial to include medication issues and infectious disease issues. Continue supportive care. (6) Rhabdomyolysis Qualifiers: Rhabdomyolysis type: non-traumatic Qualified Code(s): M62.82 - Rhabdomyolysis Is this a current diagnosis for this admission?: YesPlan: Nearly resolved. Discontinue IV fluids. (7) Chronic back pain Qualifiers: Back pain location: back pain in unspecified location Is this a current diagnosis for this admission?: YesPlan: Chronic opiate dependence. Continue MS Contin 15 mg twice daily. (8) Generalized weakness Is this a current diagnosis for this admission?: YesPlan: Physical therapy to evaluate. - Time Time Spent with patient: 35 or more minutes Anticipated discharge: Home Within: within 48 hours
[2016-11-14] MEDS: MONTELUKAST SODIUM 10 MG TABLET PO SCH (21:03)
[2016-11-15] MEDS: GABAPENTIN 300 MG CAPSULE PO SCH ×3 (05:14→21:34)
[2016-11-15] MEDS: LANSOPRAZOLE 30 MG TAB.RAP.DR PO SCH (05:15)
[2016-11-15] MEDS: BUPROPION HCL 100 MG TABLET PO SCH ×3 (05:15→21:34)
[2016-11-15 06:13] LABS: ABSOLUTE EOSINOPHILS # (AUTO) 0.2 10^3/uL (0.0-0.6); ABSOLUTE LYMPHOCYTES (AUTO) 1.8 10^3/uL (0.5-4.7); ABSOLUTE MONOCYTES (AUTO) 0.6 10^3/uL (0.1-1.4); ABSOLUTE NEUT (AUTO) 2.9 10^3/uL (1.7-8.2); BASOPHILS % (AUTO) 0.8 % (0-2); HEMATOCRIT 29.6 % (36.0-47.0); HGB HCT DIFFERENCE 0.4; LYMPHOCYTES % (AUTO) 32.8 % (13-45); MEAN CORPUSCULAR HEMOGLOBIN 30.2 pg (27.0-33.4); MEAN CORPUSCULAR HGB CONC 33.7 g/dL (32.0-36.0); MEAN CORPUSCULAR VOLUME 90 fl (80-97); MONOCYTES % (AUTO) 10.7 % (3-13); RED BLOOD COUNT 3.31 10^6/uL (3.72-5.28); RED CELL DISTRIBUTION WIDTH 17.2 % (11.5-14.0); SEGMENTED NEUTROPHILS % (AUTO) 51.7 % (42-78); WHITE BLOOD COUNT 5.5 10^3/uL (4.0-10.5)
[2016-11-15 06:35] LABS: ANION GAP 11 (5-19); BLOOD UREA NITROGEN 3 mg/dL (7-20); CALCIUM 8.7 mg/dL (8.4-10.2); CARBON DIOXIDE 23 mmol/L (22-30); CHLORIDE 110 mmol/L (98-107); CREATININE RESULT 0.52 mg/dL (0.52-1.25); GLUCOSE 76 mg/dL (75-110); SODIUM 143.9 mmol/L (137-145)
[2016-11-15 06:48] LABS: MAGNESIUM 1.2 mg/dL (1.6-2.3); POTASSIUM 2.7 mmol/L (3.6-5.0)
[2016-11-15] MEDS: MAGNESIUM SULFATE/D5W 1 GM/100 ML RTUPB IV SCH ×3 (07:35→09:27)
[2016-11-15] MEDS: POTASSIUM CHLORIDE 20 MEQ/15 ML UDCUP PO SCH ×3 (07:36→11:14)
[2016-11-15] MEDS: MORPHINE SULFATE SR 15 MG TABLET PO SCH ×2 (07:37→17:19)
[2016-11-15] MEDS: POTASSIUM CHLORIDE 10 MEQ TABLET.SA PO SCH (08:15)
[2016-11-15] MEDS: LEVOFLOXACIN 750 MG TABLET PO SCH (09:23)
[2016-11-15] MEDS: DOCUSATE SODIUM 100 MG CAPSULE PO SCH ×2 (09:23→17:18)
[2016-11-15] MEDS: PROPRANOLOL HCL 40 MG TABLET PO SCH ×2 (09:23→21:34)
[2016-11-15] MEDS: FONDAPARINUX SODIUM INJ 2.5 MG/0.5 ML DISP.SYRIN SUBCUT SCH (09:27)
[2016-11-15] MEDS ORDERED: LOSARTAN POTASSIUM 50 MG TABLET PO ONE (12:00)
--- NOTE | 2016-11-15 14:28 | PDOC PROGRESS REPORT ---
Subjective Progress Note for:: 11/15/16 Subjective:: Patient is alert and answers questions appropriately today. She has no complaints. Patient denies fever, chills, headache, new focal weakness, chest pain, shortness of breath, abdominal pain, nausea, vomiting, diarrhea, constipation. Physical Exam Vital Signs: Temp Pulse Resp BP Pulse Ox 98.0 F 76 18 170/90 H 100 11/15/16 09:24 11/15/16 09:24 11/15/16 09:24 11/15/16 09:24 11/15/16 09:24 Intake & Output 11/14/16 11/15/16 11/16/16 06:59 06:59 06:59 Intake Total 3207 10 Output Total 1043 7949 Balance -2618 -0606 Weight 77.2 kg 77.4 kg GENERAL: No acute distress HEENT: Conjunctiva clear, nonicteric, moist mucous membranes, no JVD, midline trachea RESPIRATORY: Clear to auscultation bilaterally, no wheezes, no rhonchi CARDIAC: Regular rate and rhythm, no murmurs/gallops/rubs ABDOMEN: Soft, nondistended, nontender, positive bowel sounds, no rebound, no guarding EXTREMETIES: No edema, cyanosis, clubbing NEUROLOGIC: Drowsy but arousable, will deliberately not communicate with me, CN' s grossly intact, no focal deficits SKIN: No rash, wounds PSYCH: Unusual affect Results Laboratory Results: 11/15/16 04:54 11/15/16 04:54 11/15/16 11/15/16 04:54 04:54 WBC 5.5 RBC 3.31 L Hgb 10.0 L Hct 29.6 L MCV 90 MCH 30.2 MCHC 33.7 RDW 17.2 H Plt Count 159 Seg Neutrophils % 51.7 Lymphocytes % 32.8 Monocytes % 10.7 Eosinophils % 4.0 Basophils % 0.8 Absolute Neutrophils 2.9 Absolute Lymphocytes 1.8 Absolute Monocytes 0.6 Absolute Eosinophils 0.2 Absolute Basophils 0.0 Sodium 143.9 Potassium 2.7 L* Chloride 110 H Carbon Dioxide 23 Anion Gap 11 BUN 3 L Creatinine 0.52 Est GFR ( Amer) > 60 Est GFR (Non-Af Amer) > 60 Glucose 76 Calcium 8.7 Magnesium 1.2 L* 11/11/16 12:09 Tracheal Aspirate Gram Stain - Final 11/11/16 12:09 Tracheal Aspirate Sputum Culture - Final Escherichia Coli Streptococcus Pneumoniae Normal Ingrid 11/11/16 11/11/16 11/11/16 03:40 09:00 13:23 Creatine Kinase 6633 H 6107 H 5985 H 11/11/16 11/12/16 11/13/16 21:00 20:55 04:53 Creatine Kinase 4529 H 1330 H 1031 H 11/14/16 07:15 Creatine Kinase 611 H Impressions: Head CT 11/10/16 18:27 IMPRESSION: No acute intracranial findings. Chest X-Ray 11/14/16 06:00 IMPRESSION: [id number] mixed interstitial and airspace opacities, stable. Interval extubation. Assessment & Plan - Diagnosis (1) Acute respiratory failure Is this a current diagnosis for this admission?: YesPlan: Stable post extubation on 11/13/2016. (2) Septic shock Is this a current diagnosis for this admission?: YesPlan: Patient now afebrile. Blood pressure stable off pressors. Secondary to pneumonia. (3) Aspiration pneumonia Is this a current diagnosis for this admission?: YesPlan: Likely bacterial. High probability of gram-negative organism. Sputum culture growing E. coli and strep pneumonia. Continue oral Levaquin. (4) Acute kidney injury Is this a current diagnosis for this admission?: YesPlan: Resolved. (5) Metabolic encephalopathy Is this a current diagnosis for this admission?: YesPlan: Improving. Likely multifactorial to include medication issues and infectious disease issues. Continue supportive care. (6) Rhabdomyolysis Qualifiers: Rhabdomyolysis type: non-traumatic Qualified Code(s): M62.82 - Rhabdomyolysis Is this a current diagnosis for this admission?: YesPlan: Nearly resolved. (7) Chronic back pain Qualifiers: Back pain location: back pain in unspecified location Is this a current diagnosis for this admission?: YesPlan: Chronic opiate dependence. MS Contin 15 mg twice daily. Neurontin. (8) Generalized weakness Is this a current diagnosis for this admission?: Yes - Time Time Spent with patient: 25-34 minutes Anticipated discharge: Home Within: within 24 hours
[2016-11-15] MEDS: MAGNESIUM OXIDE 400 MG TABLET PO SCH (17:18)
[2016-11-15] MEDS: METFORMIN HCL 500 MG TABLET PO SCH (17:19)
[2016-11-15] MEDS: LORAZEPAM 1 MG TABLET PO PRN (17:20)
[2016-11-15] MEDS ORDERED: (PENDING PHARMACY ID) (Metformin Hcl [Glucophage Xr 500 Mg Tablet] 500 MG) PO SCH (18:00)
[2016-11-15] MEDS: MONTELUKAST SODIUM 10 MG TABLET PO SCH (21:34)
[2016-11-16] MEDS: ACETAMINOPHEN 325 MG TABLET PO PRN ×2 (01:33→06:28)
[2016-11-16] MEDS: LORAZEPAM 1 MG TABLET PO PRN (01:33)
[2016-11-16] MEDS: LANSOPRAZOLE 30 MG TAB.RAP.DR PO SCH (05:29)
[2016-11-16] MEDS: GABAPENTIN 300 MG CAPSULE PO SCH (05:29)
[2016-11-16] MEDS: BUPROPION HCL 100 MG TABLET PO SCH (05:29)
[2016-11-16 06:53] LABS: ABSOLUTE BASOPHILS # (AUTO) 0.1 10^3/uL (0.0-0.2); ABSOLUTE EOSINOPHILS # (AUTO) 0.3 10^3/uL (0.0-0.6); ABSOLUTE LYMPHOCYTES (AUTO) 1.8 10^3/uL (0.5-4.7); ABSOLUTE MONOCYTES (AUTO) 0.7 10^3/uL (0.1-1.4); ABSOLUTE NEUT (AUTO) 2.9 10^3/uL (1.7-8.2); BASOPHILS % (AUTO) 1.1 % (0-2); EOSINOPHILS % (AUTO) 5.8 % (0-6); HEMATOCRIT 32.3 % (36.0-47.0); HEMOGLOBIN 10.9 g/dL (12.0-15.5); HGB HCT DIFFERENCE 0.4; LYMPHOCYTES % (AUTO) 31.5 % (13-45); MEAN CORPUSCULAR HEMOGLOBIN 30.1 pg (27.0-33.4); MEAN CORPUSCULAR HGB CONC 33.7 g/dL (32.0-36.0); MEAN CORPUSCULAR VOLUME 89 fl (80-97); MONOCYTES % (AUTO) 11.7 % (3-13); RED BLOOD COUNT 3.62 10^6/uL (3.72-5.28); RED CELL DISTRIBUTION WIDTH 16.9 % (11.5-14.0); SEGMENTED NEUTROPHILS % (AUTO) 49.9 % (42-78); WHITE BLOOD COUNT 5.8 10^3/uL (4.0-10.5)
[2016-11-16 07:08] LABS: BLOOD UREA NITROGEN 5 mg/dL (7-20); CALCIUM 8.9 mg/dL (8.4-10.2); CARBON DIOXIDE 23 mmol/L (22-30); CHLORIDE 108 mmol/L (98-107); CREATININE RESULT 0.61 mg/dL (0.52-1.25); GLUCOSE 89 mg/dL (75-110); MAGNESIUM 1.7 mg/dL (1.6-2.3)
[2016-11-16 07:10] LABS: ANION GAP 5 (5-19)
[2016-11-16 07:15] LABS: SODIUM 135.6 mmol/L (137-145)
[2016-11-16] MEDS ORDERED: POTASSI CL 20 MEQ/50 ML RIDER 50 ML IV SCH (07:45)
[2016-11-16] MEDS ORDERED: FUROSEMIDE 40 MG TABLET PO SCH (08:00)
[2016-11-16] MEDS: METFORMIN HCL 500 MG TABLET PO SCH (08:35)
[2016-11-16] MEDS: MAGNESIUM OXIDE 400 MG TABLET PO SCH (09:17)
[2016-11-16] MEDS: LEVOFLOXACIN 750 MG TABLET PO SCH (09:17)
[2016-11-16] MEDS: FONDAPARINUX SODIUM INJ 2.5 MG/0.5 ML DISP.SYRIN SUBCUT SCH (09:18)
[2016-11-16] MEDS: DOCUSATE SODIUM 100 MG CAPSULE PO SCH (09:18)
[2016-11-16] MEDS ORDERED: POTASSIUM CHLORIDE 10 MEQ TABLET.SA PO SCH (10:00)
[2016-11-16] MEDS ORDERED: LOSARTAN POTASSIUM 50 MG TABLET PO SCH (10:00)
--- NOTE | 2016-11-16 10:02 | PDOC DISCHARGE SUMMARY ---
General - Admit/Disc Date/PCP Admission Date/Primary Care Provider: 11/10/16 22:48 Discharge Date: 11/16/16 - Discharge Diagnosis (1) Acute respiratory failure Is this a current diagnosis for this admission?: Yes (2) Septic shock Is this a current diagnosis for this admission?: Yes (3) Aspiration pneumonia Is this a current diagnosis for this admission?: Yes (4) Acute kidney injury Is this a current diagnosis for this admission?: Yes (5) Metabolic encephalopathy Is this a current diagnosis for this admission?: Yes (6) Rhabdomyolysis Is this a current diagnosis for this admission?: Yes (7) Chronic back pain Is this a current diagnosis for this admission?: Yes (8) Generalized weakness Is this a current diagnosis for this admission?: Yes (9) History of gastric bypass Is this a current diagnosis for this admission?: Yes - Additional Information Resuscitation Status: Full Code Discharge Diet: Regular Discharge Activity: Activity As Tolerated Home Medications: Bupropion HCl [Wellbutrin Xl 300mg 24hr Tablet] 300 mg PO QAM 11/11/16 Duloxetine HCl [Cymbalta] 60 mg PO QAM 11/11/16 Estradiol 1 mg PO DAILY 11/11/16 Gabapentin [Neurontin] 600 mg PO Q8 11/11/16 Losartan Potassium [Cozaar 100 mg Tablet] 100 mg PO DAILY 11/11/16 Metformin HCl [Glucophage XR 500 mg Tablet] 500 mg PO QPM 11/11/16 Montelukast Sodium [Singulair 10 mg Tablet] 10 mg PO QHS 11/11/16 Pantoprazole Sodium [Protonix] 40 mg PO QAM 11/11/16 Potassium Chloride 20 meq PO QAM 11/11/16 Propranolol HCl [Inderal LA] 80 mg PO DAILY 11/11/16 Sulfasalazine [Azulfidine] 500 mg PO BID 11/11/16 Acetaminophen [Tylenol 325 mg Tablet] 650 mg PO Q4HP PRN tablet 11/16/16 Furosemide [Lasix] 40 mg PO QAM PRN #0 11/16/16 Levofloxacin [Levaquin 750 mg Tablet] 750 mg PO DAILY #5 tablet 11/16/16 Magnesium Oxide [Mag-Ox 400 mg Tablet] 400 mg PO BID #60 tablet 11/16/16 Morphine Sulfate [Ms-Contin Sr 15 mg Tablet] 15 mg PO Q12A #20 tablet.sa History of Present Illness Patient complains of: Altered mental status History of Present Illness: BARBARA RHODES is a 61 year old female with a past medical history of hypertension, chronic low back pain, depression, who presents after family members concern for several episodes of unwitnessed syncope versus lethargy and falls occurring over the last 30 hours. Yesterday she was driven by her sister from [place] to [place]. Family members admit previous episodes of excessive sedation secondary to medication. In the emergency room patient found to hypotensive with a blood pressure 97/63 without tachycardia, appearing intoxicated, developing hyperkinesis, grinding her teeth and restlessness. She is unable to protect her airway and is intubated. Evaluation of her medications are notable for 10 tablets of Adderall short. She is referred to the hospital for admission for acute intoxication, encephalopathy, hypotension, rhabdomyolysis, metabolic acidosis, hypoglycemia and acute renal failure. Hospital Course Hospital Course: Patient was admitted for respiratory failure secondary to aspiration pneumonia resulting from overmedication issues. She required intubation and mechanical ventilation for several days. She was subsequently extubated and has remained stable post extubation. She was initially treated with broad-spectrum IV antibiotics for aspiration related pneumonia. Sputum culture grew E. coli and Streptococcus pneumonia both sensitive to Levaquin. IV antibiotics were discontinued and patient is completing course of oral Levaquin. She is stable at time of discharge. With regard to encephalopathy patient is apparently frequently encephalopathic from medication side effects. According to family members and actually to patient herself she has not been very functional for a long time secondary to overmedication. Her total opiate dose was decreased during this hospitalization from a 24 hour dose of morphine 60 mg to currently MS Contin 15 mg twice daily. Patient has no complaints of pain on have the narcotic dose that she was on before and she is alert and appropriate and very functional. I would like to convey this to her pain management doctor for future consideration. On admission patient had rhabdomyolysis and acute kidney injury. She was initially treated with aggressive IV fluids and this resolved. She has had electrolyte issues such as hypokalemia and hypomagnesemia that have been addressed during hospitalization. She is discharged on potassium and magnesium supplementation. Physical Exam Vital Signs: Temp Pulse Resp BP Pulse Ox 97.5 F 84 16 184/114 H 100 11/16/16 08:24 11/16/16 08:24 11/16/16 00:33 11/16/16 08:24 11/16/16 08:24 Intake & Output 11/15/16 11/16/16 11/17/16 06:59 06:59 06:59 Intake Total 10 1976 Output Total 5371 1652 Balance -7479 -8819 Weight 77.4 kg 77.4 kg GENERAL: No acute distress HEENT: Conjunctiva clear, nonicteric, moist mucous membranes, no JVD, midline trachea RESPIRATORY: Clear to auscultation bilaterally, no wheezes, no rhonchi CARDIAC: Regular rate and rhythm, no murmurs/gallops/rubs ABDOMEN: Soft, nondistended, nontender, positive bowel sounds, no rebound, no guarding EXTREMETIES: No edema, cyanosis, clubbing NEUROLOGIC: Alert, oriented to person/place/time, CN's grossly intact, no focal deficits SKIN: No rash, wounds PSYCH: Normal mood, normal affect Results Laboratory Results: 11/16/16 05:56 11/16/16 05:56 11/15/16 11/15/16 11/16/16 04:54 04:54 05:56 WBC 5.8 RBC 3.62 L Hgb 10.9 L Hct 32.3 L MCV 89 MCH 30.1 MCHC 33.7 RDW 16.9 H Plt Count 162 Seg Neutrophils % 49.9 Lymphocytes % 31.5 Monocytes % 11.7 Eosinophils % 5.8 Basophils % 1.1 Absolute Neutrophils 2.9 Absolute Lymphocytes 1.8 Absolute Monocytes 0.7 Absolute Eosinophils 0.3 Absolute Basophils 0.1 Retic Count (auto) 1.34 Absolute Retic 0.045 Sodium Potassium Chloride Carbon Dioxide Anion Gap BUN Creatinine Est GFR ( Amer) Est GFR (Non-Af Amer) Glucose Calcium Magnesium Iron 87.3 TIBC 264 % Saturation 33 Ferritin 64.70 Vitamin B12 834.0 Folate 11.50 11/16/16 05:56 WBC RBC Hgb Hct MCV MCH MCHC RDW Plt Count Seg Neutrophils % Lymphocytes % Monocytes % Eosinophils % Basophils % Absolute Neutrophils Absolute Lymphocytes Absolute Monocytes Absolute Eosinophils Absolute Basophils Retic Count (auto) Absolute Retic Sodium 135.6 L Potassium 3.0 L* Chloride 108 H Carbon Dioxide 23 Anion Gap 5 BUN 5 L Creatinine 0.61 Est GFR ( Amer) > 60 Est GFR (Non-Af Amer) > 60 Glucose 89 Calcium 8.9 Magnesium 1.7 Iron TIBC % Saturation Ferritin Vitamin B12 Folate 11/11/16 12:09 Tracheal Aspirate Gram Stain - Final 11/11/16 12:09 Tracheal Aspirate Sputum Culture - Final Escherichia Coli Streptococcus Pneumoniae Normal Ingrid 11/11/16 11/11/16 11/11/16 03:40 09:00 13:23 Creatine Kinase 6633 H 6107 H 5985 H 11/11/16 11/12/16 11/13/16 21:00 20:55 04:53 Creatine Kinase 4529 H 1330 H 1031 H 11/14/16 07:15 Creatine Kinase 611 H Impressions: Head CT 11/10/16 18:27 IMPRESSION: No acute intracranial findings. Chest X-Ray 11/14/16 06:00 IMPRESSION: [id number] mixed interstitial and airspace opacities, stable. Interval extubation. Qualifiers PATEINT BEING DISCHARGED WITH ANY OF THE FOLLOWING DIAGNOSIS?: No Plan Time Spent: Less than 30 Minutes
[2016-11-16 10:18] VITALS: BP 178/114
[2016-11-16] MEDS ORDERED: POTASSIUM CHLORIDE 10 MEQ TABLET.SA PO ONE (11:00)
[2016-11-16] MEDS: PROPRANOLOL HCL 40 MG TABLET PO SCH (11:22)
--- NOTE | 2016-11-17 17:41 | PDOC PROGRESS REPORT ---
Subjective Progress Note for:: 11/15/16 Subjective:: much more alert over last 24hrs Physical Exam Vital Signs: Temp Pulse Resp BP Pulse Ox 97.5 F 84 16 178/114 H 100 11/16/16 10:14 11/16/16 10:14 11/16/16 10:14 11/16/16 10:14 11/16/16 10:14 Intake & Output 11/16/16 11/17/16 11/18/16 06:59 06:59 06:59 Intake Total 1977 Output Total 3400 Balance -1423 Weight 77.4 kg General appearance: PRESENT: no acute distress, cooperative, disheveled Head exam: PRESENT: atraumatic, normocephalic Eye exam: PRESENT: conjunctiva pale, EOMI Mouth exam: PRESENT: moist, neck supple, tongue midline Neck exam: ABSENT: carotid bruit, JVD, lymphadenopathy, thyromegaly Respiratory exam: PRESENT: decreased breath sounds, prolonged expiratory phas, rhonchi, symmetrical, unlabored Cardiovascular exam: PRESENT: RRR, +S1, +S2 Pulses: PRESENT: normal radial pulses GI/Abdominal exam: PRESENT: normal bowel sounds, soft. ABSENT: distended, guarding, mass, organolmegaly, rebound, tenderness Rectal exam: PRESENT: deferred Musculoskeletal exam: PRESENT: normal inspection Neurological exam: PRESENT: alert, awake Psychiatric exam: PRESENT: normal mood Skin exam: PRESENT: dry, warm Results Laboratory Results: 11/16/16 05:56 11/16/16 05:56 11/15/16 04:54 Transferrin 197 L 11/11/16 17:00 Blood Blood Culture - Final NO GROWTH IN 5 DAYS 11/11/16 13:37 Blood Blood Culture - Final NO GROWTH IN 5 DAYS 11/11/16 11/11/16 11/11/16 03:40 09:00 13:23 Creatine Kinase 6633 H 6107 H 5985 H 11/11/16 11/12/16 11/13/16 21:00 20:55 04:53 Creatine Kinase 4529 H 1330 H 1031 H 11/14/16 07:15 Creatine Kinase 611 H Impressions: Head CT 11/10/16 18:27 IMPRESSION: No acute intracranial findings. Chest X-Ray 11/14/16 06:00 IMPRESSION: [id number] mixed interstitial and airspace opacities, stable. Interval extubation. Assessment & Plan - Diagnosis (1) Aspiration pneumonitis Is this a current diagnosis for this admission?: No (2) Airway compromise Is this a current diagnosis for this admission?: No (3) Metabolic acidosis Is this a current diagnosis for this admission?: YesPlan: slowly improving ,hypokalemic
== END 2016-11-16 11:26 | disposition home or self-care (01) | DRG 871 ==
LOC: ER 17:55 → EH 22:48 → ICU 11-11 00:07 → 4S 11-14 17:10
PROVIDERS: ADMIT Internal Medicine; ATTEND Internal Medicine
PROC: 0BH17EZ Insertion of Endotracheal Airway into Trachea, Via Natural or Artificial Opening (ICD-10-PCS; principal; 2016-11-10)
PROC: 5A1945Z Respiratory Ventilation, 24-96 Consecutive Hours (ICD-10-PCS; 2016-11-10)
DX: A41.9 Sepsis, unspecified organism (principal); R65.21 Severe sepsis with septic shock; J96.00 Acute respiratory failure, unspecified whether with hypoxia or hypercapnia; J69.0 Pneumonitis due to inhalation of food and vomit; G93.41 Metabolic encephalopathy; M62.82 Rhabdomyolysis; N17.9 Acute kidney failure, unspecified; E87.6 Hypokalemia; E83.42 Hypomagnesemia; I10 Essential (primary) hypertension; F32.9 Major depressive disorder, single episode, unspecified; M54.9 Dorsalgia, unspecified; G89.29 Other chronic pain; Z98.84 Bariatric surgery status; Z79.899 Other long term (current) drug therapy; Z79.84 Long term (current) use of oral hypoglycemic drugs
CPT/HCPCS: 36415; 36600; 51701; 70450; 71010; 80048; 80053; 80307; 81001; 82040; 82140; 82533; 82550; 82607; 82728; 82746; 82803; 82962; 83540; 83550; 83735; 83930; 83935; 84100; 84443; 84466; 84484; 84600; 85025; 85045; 87040; 87070; 87077; 87186; 87205; 93005; 93010; 94002; 94003; 94640; 96361; 96374; 96375; 99291; 99292; J0360; J0610; J1100; J1200; J1644; J1652; J1940; J1956; J2060; J2270; J2310; J2405; J2543; J2704; J3010; J3370; J3475; J3480; J3490; J7030; J7040; J7060; J7620; J7685